=== PATIENT | female | born 1955 | race Caucasian/White ===

== ENCOUNTER 2021-08-31 17:12 | Emergency (ER) | payer BC, SELFPAY ==
[2021-08-31] VITALS (16 sets, daily range): BP systolic 154–203; BP diastolic 72–102; PULSE 61–88; RESP 13–22; TEMP 36.7; O2SAT 97–100
--- NOTE | ~2021-08-31 | XR_ITS ---
EXAMINATION: XR chest 2V DATE: 08/31/2021 17:55 INDICATION: Heart palpitations TECHNIQUE: PA and lateral views of the chest are obtained. COMPARISON: 06/15/2018 FINDINGS: The lungs are free of acute opacities. There is no pleural effusion or pneumothorax. The ca rdiomediastinal silhouette is normal. There is mild thoracic spondylosis. IMPRESSION: 1. No acute cardiopulmonary abnormality. Reviewed, dictated and finalized at location A.
--- NOTE | 2021-08-31 17:14 | ECG_ITS ---
Measurements Intervals [place] Rate: 82 P: 27 CA: 149 QRS: -21 QRSD: 98 T: 2 QT: 365 QTc: 427 Interpretive Statements SINUS RHYTHM VOLTAGE CRITERIA FOR LVH BORDERLINE T WAVE ABNORMALITY- INF/LAT LEADS BASELINE ARTIFACT- II, III, AVF BORDERLINE ECG Electronically Signed On 09-01-2021 10:08:15 CDT by Jono Coyel D.O.
[2021-08-31 17:51] LABS: Basophils Absolute Auto 0.1 K/mm3 (0.0-0.1); Basophils Percent Auto 0.8 % (0.2-1.2); Eosinophils Absolute Auto 0.1 K/mm3 (0-0.3); Eosinophils Percent Auto 0.9 % (0-4.4); Hematocrit 42.2 % (37.0-47.0); Hemoglobin 13.7 g/dL (12.0-15.0); Immature Granulocyte Absolute 0.01 K/mm3 (0.00-0.031); Immature Granulocyte Percent A 0.1 % (0-0.5); Lymphocytes Absolute Auto 1.76 K/mm3 (0.9-3.2); Lymphocytes Percent Auto 22.9 % (18.3-44.2); Mean Corpuscular HGB Conc 32.5 g/dl (32-36); Mean Corpuscular Hemoglobin 31.4 pg (26-34); Mean Corpuscular Volume 96.6 fl (80-100); Mean Platelet Volume 10.6 fl (7.4-10.4); Monocytes Absolute Auto 0.5 K/mm3 (0.1-0.6); Neutrophils Absolute Auto 5.3 K/mm3 (1.3-6.7); Neutrophils Percent Auto 68.3 % (45.5-73.1); Platelet Count Result 254 k/mm3 (150-375); Red Blood Count 4.37 M/mm3 (4.2-5.4); White Blood Count 7.7 K/mm3 (4.5-10.0)
[2021-08-31 18:01] LABS: INR 0.9; Prothrombin Time 11.8 Seconds (11.1-14.7)
[2021-08-31 18:02] LABS: Partial Thromboplastin Time 32.5 SECONDS (22.3-36.8)
[2021-08-31 18:13] LABS: Troponin I < 0.012 ng/mL (0.000-0.034)
[2021-08-31 18:19] LABS: Anion Gap 8 mmol/L (8-16); Blood Urea Nitrogen 19 mg/dL (7-17); Calcium 9.6 mg/dL (8.4-10.2); Carbon Dioxide 27 mmol/L (22-30); Chloride 104 mmol/L (98-107); Estimated CRCL calculation 64 ml/min; Estimated Glomerular Filt Rate > 60; Glucose 114 mg/dL (65-110); Sodium 139 mmol/L (137-145)
[2021-08-31 18:47] LABS: Potassium 3.7 mmol/L (3.4-5.0)
--- NOTE | 2021-08-31 19:53 | ED.ARRPALP ---
HPI - Arrhythmia/Palpitations General Chief Complaint: Arrhythmia/Palpitations Stated Complaint: heart racing Time Seen by Provider: 08/31/21 19:09 History of Present Illness HPI narrative: Patient is a 65-year-old female who presents ER with palpitations. Ongoing throughout the day. No chest pain or chest pressure. No difficulty breathing. Patient has some reports of intermittent swelling of her face for last day and that it feels warm. No cellulitis or difficulty swallowing. No dental pain. Recently noted that her blood pressure been running high so she was started on lisinopril by her PCP. Related Data Home Medications Medication Instructions Recorded Confirmed lisinopril 08/31/21 Allergies Allergy/AdvReac Type Severity Reaction Status Date / Time shellfish derived Allergy Severe Swelling Verified 08/31/21 17:18 of Lip/Tongue/Throat, RASH iodine Allergy Unknown Swelling Verified 08/31/21 20:01 of Lip/Tongue/Throat Shrimp Allergy Severe THROAT Uncoded 12/20/18 21:41 SWELLING,RASH Review of Systems Review of Systems: All systems reviewed & are unremarkable except as noted in HPI and below Constitutional: Constitutional: Denies chills, Denies fever(s) and Denies weakness ENT: Denies nasal congestion and Denies sore throat Cardiovascular: Cardiovascular: Denies chest pain, Reports rapid heart rate and Denies radiating jaw, neck or arm pain Respiratory: Respiratory: Denies cough and Denies dyspnea Gastrointestinal: Gastrointestinal: Denies abdominal pain, Denies nausea and Denies vomiting Psychiatric: Psychiatric: Denies anxiety PMFSH Past Medical History Medical History (Updated 08/31/21 @ 20:30 by Dennis Herrera MD) Colon cancer Depression Fibromyalgia Hypertension Surgical History Surgical History (Updated 08/31/21 @ 20:10 by Dennis Herrera MD) History of appendectomy Family History Family History (Updated 08/20/14 @ 11:50 by DOCTOR UNKNOWN) Mother Family history of malignant neoplasm Other Cerebrovascular accident Diabetes mellitus Hypertension Social History Social History Smoking status: Never smoker Alcohol intake: current Exam Narrative: GENERAL: Well-appearing, well-nourished, and in no acute distress. HEAD: Normocephalic, atraumatic. ENT: Mucous membranes moist. CHEST: Clear to auscultation. No respiratory distress. HEART: Regular rate and rhythm. Normal peripheral pulses. ABDOMEN: Soft, nontender, nondistended. EXTREMITIES: Normal range of motion. No edema. SKIN: Warm, dry, no rash. NEURO: Alert and oriented x3. PSYCH: Normal mood and affect. Course Course Emergency Course: Patient resting comfortably. No arrhythmia. Vital Signs Vital signs: Vital Signs Temperature 98.0 F 08/31/21 17:25 Pulse Rate 88 08/31/21 17:25 Respiratory Rate 18 08/31/21 17:25 Blood Pressure 171/90 H 08/31/21 17:25 Pulse Oximetry 100 08/31/21 17:25 Temperature 98.0 F 08/31/21 17:25 Pulse Rate 65 08/31/21 19:47 Respiratory Rate 14 08/31/21 19:47 Blood Pressure 160/72 H 08/31/21 19:47 Pulse Oximetry 99 08/31/21 19:47 MDM - Arrhythmia/Palpitations Lab Data Result diagrams: 08/31/21 17:34 08/31/21 17:34 Labs: Lab Results 08/31/21 08/31/21 08/31/21 Range/Units 17:34 17:34 17:34 WBC 7.7 (4.5-10.0) K/mm3 RBC 4.37 (4.2-5.4) M/mm3 Hgb 13.7 (12.0-15.0) g/dL Hct 42.2 (37.0-47.0) % MCV 96.6 (80-100) fl MCH 31.4 (26-34) pg MCHC 32.5 (32-36) g/dl RDW 13.0 (11.5-14.5) % Plt Count 254 (150-375) k/mm3 MPV 10.6 H (7.4-10.4) fl Immature Gran % (Auto) 0.1 (0-0.5) % Neut % (Auto) 68.3 (45.5-73.1) % Lymph % (Auto) 22.9 (18.3-44.2) % [place] % (Auto) 7.0 (2.6-8.5) % Eos % (Auto) 0.9 (0-4.4) % Baso % (Auto) 0.8 (0.2-1.2) % Lymph # (Auto) 1.76 (0.9-3.2) K/mm3 [place] # (Auto) 0.5 (0.1-0.6) K
[2021-08-31] MEDS: ASPIRIN 81 MG CHEWABLE TABLET 324 MG PO (19:54)
[2021-08-31 20:52] LABS: Troponin I < 0.012 ng/mL (0.000-0.034)
== END 2021-08-31 21:21 | disposition home or self-care (01) ==
PROVIDERS: Emergency Medicine; Emergency Provider Emergency Medicine; PCP Family Medicine Adolescent Medicine
DX: R00.2 Palpitations (principal); I10 Essential (primary) hypertension; Z85.038 Personal history of other malignant neoplasm of large intestine; R94.31 Abnormal electrocardiogram [ECG] [EKG]
CPT/HCPCS: 36415; 71046; 80048; 84484; 85025; 85610; 85730; 93005; 99284; A9270

== ENCOUNTER → 2022-01-03 14:34 | Outpatient (CLI) | payer MEDICARE, OTHER, SELFPAY ==
--- NOTE | ~2022-01-03 | XR_ITS ---
EXAMINATION: XR chest 2V 01/03/2022 14:59 INDICATION: Shortness of breath PROCEDURE: 2 view chest COMPARISON: 08/31/2021 FINDINGS: The lungs are clear. The cardiomediastinal silhouette is within normal limits. There are no pleural effusions. There is no pneumothorax suspected. IMPRESSION: 1: NO ACUTE CARDIOPULMONARY DISEASE. Reviewed, dictated and finalized at location B. GUIDE
== END ==
PROVIDERS: PCP Family Medicine Adolescent Medicine; Visit Provider Physician Assistant
DX: R06.02 Shortness of breath (principal)
CPT/HCPCS: 71046

== ENCOUNTER 2022-01-06 09:09 | Outpatient (CLI) | payer MEDICARE, OTHER, SELFPAY ==
--- NOTE | ~2022-01-06 | CT_ITS ---
EXAMINATION: CTA chest PE protocol DATE: 01/06/2022 09:37 INDICATION: Shortness of breath. TECHNIQUE: Computed tomography angiography (CTA) of the chest was performed with 100 mL Omnipaque-350 intravenous contrast timed to evaluate the pulmonary arteries. Coronal maximum intensity projection 3D-reconstructions were created by the technologist. Automated exposure control and iterative reconst ruction technique were employed. The dose-length product was 756.27 mGy-cm. COMPARISON: CT thoracic spine 08/16/2018 FINDINGS: The lungs demonstrate mild atelectasis. No pleural effusion. Cardiomegaly is noted. No jim cardial effusion. There is no pulmonary embolus. There are cysts in the liver measuring up to 10 mm. There is a small sliding hiatal hernia. There is severe cervical spondylosis and mild thoracic spondy losis. IMPRESSION: 1. No pulmonary embolus. 2. Small sliding hiatal hernia. Reviewed, dictated and finalized at location A. ET POST INSPECTOR
== END 2022-01-06 09:10 | disposition home or self-care (01) ==
LOC: ANHIMG 09:13
PROVIDERS: PCP Family Medicine Adolescent Medicine; Visit Provider Physician Assistant
DX: R06.02 Shortness of breath (principal); M79.89 Other specified soft tissue disorders; K44.9 Diaphragmatic hernia without obstruction or gangrene
CPT/HCPCS: 71275; Q9967

== ENCOUNTER 2022-01-31 13:40 | Inpatient (IN) | payer MEDICARE, OTHER, SELFPAY ==
[2022-01-31] VITALS (31 sets, daily range): BP systolic 119–173; BP diastolic 72–110; PULSE 56–82; RESP 11–24; TEMP 35.9–36.1; O2SAT 84–100; BMI 41.4
--- NOTE | ~2022-01-31 | XR_ITS ---
EXAMINATION: XR chest 2V 01/31/2022 14:22 INDICATION: Chest pain PROCEDURE: 2 view chest COMPARISON: 01/03/2022 FINDINGS: The lungs are clear. The cardiomediastinal silhouette is within normal limits. There are no pleural effusions. There is no pneumothorax suspected. IMPRESSION: 1: NO ACUTE CARDIOPULMONARY DISEASE. Reviewed, dictated and finalized at location A.
--- NOTE | ~2022-01-31 | CT_ITS ---
EXAMINATION: CT diagnostic chest wo con DATE: 01/31/2022 16:20 INDICATION: Chest pain TECHNIQUE: Computed tomography (CT) of the chest was performed without intravenous contrast. The dose -length product (DLP) was 286.16 mGy-cm. Automated exposure control and iterative reconstruction tech nique were employed. COMPARISON: 01/06/2022 FINDINGS: There is mild dependent atelectasis. The lungs are free of focal airspace opacities. No ple ural effusion or pneumothorax is identified. No pathologically enlarged thoracic lymph nodes are iden tified. The heart size is normal. There is mild thoracic spondylosis. A small sliding hiatal hernia i s noted. IMPRESSION: 1. No CT correlate for the patient's symptoms. Reviewed, dictated and finalized at location B.
--- NOTE | 2022-01-31 13:42 | ECG_ITS ---
Measurements Intervals [place] Rate: 71 P: 88 [place]: 143 QRS: -21 QRSD: 100 T: -24 QT: 363 QTc: 394 Interpretive Statements SINUS RHYTHM BORDERLINE LEFT AXIS DEVIATION [QRS AXIS < -20] MODERATE VOLTAGE CRITERIA FOR LVH, CONSIDER NORMAL VARIANT [MEETS CRITERIA IN ONE OF: R(aVL), S(V1), R(V5), R(V5/V6)+S(V1)] NONSPECIFIC ST & T-WAVE ABNORMALITY COMPARED TO ECG 08/31/2021 17:23:29 NO CHANGE Electronically Signed On 01-31-2022 15:51:09 CDT by Derrell Boateng M.D.
[2022-01-31 14:02] LABS: Basophils Absolute Auto 0.1 K/mm3 (0.0-0.1); Basophils Percent Auto 0.7 % (0.2-1.2); Eosinophils Absolute Auto 0.1 K/mm3 (0-0.3); Eosinophils Percent Auto 0.7 % (0-4.4); Hemoglobin 13.1 g/dL (12.0-15.0); Immature Granulocyte Absolute 0.02 K/mm3 (0.00-0.031); Immature Granulocyte Percent A 0.2 % (0-0.5); Lymphocytes Absolute Auto 1.02 K/mm3 (0.9-3.2); Lymphocytes Percent Auto 12.7 % (18.3-44.2); Mean Corpuscular Hemoglobin 31.1 pg (26-34); Mean Corpuscular Volume 97.4 fl (80-100); Mean Platelet Volume 10.4 fl (7.4-10.4); Monocytes Absolute Auto 0.6 K/mm3 (0.1-0.6); Monocytes Percent Auto 7.1 % (2.6-8.5); Neutrophils Absolute Auto 6.3 K/mm3 (1.3-6.7); Neutrophils Percent Auto 78.6 % (45.5-73.1); Platelet Count Result 236 k/mm3 (150-375); Red Blood Count 4.21 M/mm3 (4.2-5.4); Red Cell Distribution Width 12.8 % (11.5-14.5)
[2022-01-31 14:16] LABS: INR 0.9; Prothrombin Time 12.2 Seconds (11.1-14.7)
[2022-01-31 14:17] LABS: Partial Thromboplastin Time 32.6 SECONDS (22.3-36.8)
[2022-01-31 14:36] LABS: Alanine Aminotransferase 25 U/L (4-35); Alkaline Phosphatase 88 U/L (38-126); Anion Gap 6 mmol/L (8-16); Aspartate Amino Transferase 43 U/L (14-36); Bilirubin,Total 0.4 mg/dL (0.2-1.3); Blood Urea Nitrogen 26 mg/dL (7-17); Calcium 8.6 mg/dL (8.4-10.2); Carbon Dioxide 22 mmol/L (22-30); Chloride 109 mmol/L (98-107); Estimated CRCL calculation 62 ml/min; Estimated Glomerular Filt Rate > 60; Glucose 127 mg/dL (65-110); Lipase 111 U/L (23-300); Potassium 3.9 mmol/L (3.4-5.0); Sodium 137 mmol/L (137-145)
[2022-01-31] MEDS: ASPIRIN 81 MG CHEWABLE TABLET 324 MG PO (15:11)
--- NOTE | 2022-01-31 15:58 | ECG_ITS ---
Measurements Intervals [place] Rate: 67 P: 43 CA: 143 QRS: -19 QRSD: 113 T: -24 QT: 423 QTc: 447 Interpretive Statements SINUS RHYTHM LEFT VENTRICULAR HYPERTROPHY AND ST-T CHANGE [VOLTAGE CRITERIA PLUS ST/T ABNORMALITY] INFEROLATERAL T-WAVE ABNORMALITY, CONSIDER ISCHEMIA POOR R-WAVE PROGRESSION LEFTWARD AXIS ABNORMAL ECG Electronically Signed On 02-01-2022 11:09:15 CDT by Johnson Mullen M.D.
--- NOTE | 2022-01-31 16:06 | ED.CHESTPAIN ---
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 With intermittent sharp stabbing pain between shoulder blades. Pain was 10 out of 10, on arrival to the emergency room 7 out of 10. Patient reports having similar symptoms over the last 6 months and is scheduled to see a clay hoister coming Monday. Usually the pain gets better in 1 to 2 hours but this 1 has been hanging in there for hours. complaint: chest pain Related Data Allergies Allergy/AdvReac Type Severity Reaction Status Date / Time shellfish derived Allergy Severe Swelling Verified 12/02/21 08:55 of Lip/Tongue/Throat, RASH iodine Allergy Unknown Swelling Verified 12/02/21 08:55 of Lip/Tongue/Throat Shrimp Allergy Severe THROAT Uncoded 12/02/21 08:55 SWELLING,RASH Review of Systems Review of Systems: CONSTITUTIONAL: Denies fever, chills, or sweats. EYES: Denies visual changes, redness, or discharge. ENT: Denies rhinorrhea, congestion, sore throat, or otalgia. CARDIOVASCULAR: Denies chest pain, palpitations, or edema. RESPIRATORY: Denies cough or dyspnea. GASTROINTESTINAL: Denies abdominal pain, nausea, vomiting, or diarrhea. GENITOURINARY: Denies dysuria or hematuria. SKIN: Denies rash or itching. MUSCULOSKELETAL: Denies back pain, joint pain, or myalgia. NEUROLOGIC: Denies headache, numbness, or weakness. PSYCHIATRIC: Denies anxiety or depression. [facility] Past Medical History Medical History Depression Fibromyalgia History of rectal or anal cancer 08/26 Squamous cell Hypertension Surgical History Surgical History History of appendectomy History of tonsillectomy History of tubal ligation Family History Family History Mother Family history of malignant neoplasm leukemia Father Family history of malignant neoplasm lung cancer Other Cerebrovascular accident Diabetes mellitus Hypertension Social History Social History Smoking status: Never smoker Second hand tobacco smoke exposure: No Alcohol intake: current Alcohol use details: socially Substance use: never Substance use type: does not use 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 Gender identity (if verbalized by the patient): Female Sexual Orientation (if Verbalized by the Patient): Straight or Heterosexual Spiritual care concerns: No Agree to blood products: Yes Exam Narrative: General appearance: Well-developed, well-nourished Skin: Trace edema lower extremity bilaterally Head: Normocephalic, nontraumatic Eyes: Clear conjunctiva ENT: Oropharynx normal, ears normal, nose normal Neck: Supple, nontender Chest and respiratory: Airway patent, no respiratory distress, no accessory muscle use diffuse tenderness across the chest with palpation, no bruises, no rash Heart: Regular rate/rhythm Abdomen: Soft, nontender, no organomegaly, quiet bowel sounds Vascular: Normal peripheral pulses, normal capillary refill. Musculoskeletal: Normal range of motion, nontender back Neurologic: Alert and oriented ?3, DIRECTOR OF COMPENSATION is normal as tested, no gross motor deficit
--- NOTE | 2022-01-31 16:29 | PCRCNOTE ---
can cancel per Dr. Chester
--- NOTE | 2022-01-31 16:38 | PC.NURSE ---
Cardiology at bedside.
[2022-01-31] MEDS: NITROGLYCERIN OINTMENT 1 INCH DOSE TRANSDERM (16:40)
[2022-01-31] MEDS: METOPROLOL TARTRATE INJ 5 MG/5 ML VIAL IV PUSH ×3 (16:43→16:55)
--- NOTE | 2022-01-31 16:54 | PM.IMHP ---
H&P: HPI History of Present Illness Date/Time: 01/31/22 16:54 Chief Complaint: this is a 66-year-old woman that I am seeing in the emergency room with chest pain at the request of the ED staff because of suspected acute coronary syndrome. Patient says she is not known to have any cardiac history prior to this. She says that she has had episodes of intermittent chest pain for at least 2 or 3 years off and on that occur in an unpredictable fashion. She had these episodes have caused her to come to the emergency room on a couple of occasions with negative evaluations and she has been then discharged home. She is a lady with hypertension and significant obesity who began to have chest pain this morning while she was at work. 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 in the morning started to have a tight pain across the center of the spectrum sternal region radiating into the interscapular region of her back. The patient states that this symptoms were associated with some diaphoresis. She came to the emergency department for evaluation. Her emergency room ECG initially was benign the 2nd tracing did demonstrate some lateral nonspecific but new T-wave inversions. Her troponin levels have and found to be elevated at 2.1. She has been given aspirin beta-blockers and nitrates and she says she feels much better still having mild symptoms appears to be rather comfortable. Initially my plan was to bring her at this time to the cardiac labeling associate for urgent angiography however the chart indicates she has a significant dye allergy with swelling of the lips tongue and throat. The patient corroborates this when eating shellfish and shrimp. As a result of this I had canceled plans to bring her to the labeling associate until she has been appropriately premedicated. I directed the ED staff to start her on a heparin infusion as well as intravenous nitroglycerin. She has already received aspirin and beta-blockers in the emergency room as well. Review of Systems Constitutional: Constitutional: Reports no additional constitutional complaints Eyes: Eyes: Reports no additional eye complaints ENT: Reports system reviewed and no additional complaints, except as documented Cardiovascular: Cardiovascular: Reports as per HPI Respiratory: Respiratory: Reports no additional respiratory complaints Gastrointestinal: Gastrointestinal: Reports no additional gastrointestinal complaints Musculoskeletal: Musculoskeletal: Reports no additional musculoskeletal complaints Integumentary/Breasts: Skin/Breast: Reports system reviewed and no additional complaints, except as docu Neurologic: Reports system reviewed and no additional complaints, except as documented PMFSH Past Medical History Medical History Depression Fibromyalgia History of rectal or anal cancer 08/26 Squamous cell Hypertension Surgical History Surgical History History of appendectomy History of tonsillectomy History of tubal ligation Family History Family History Mother Family history of malignant neoplasm leukemia Father Family history of malignant neoplasm lung cancer Other Cerebrovascular accident Diabetes mellitus Hypertension Social History Social History Smoking status: Never smoker Second hand tobacco smoke exposure: No Alcohol intake: current Alcohol use details: socially Substance use: never Substance use type: does not use 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
[2022-01-31] MEDS: diphenhydrAMINE HCl INJ 50 MG/ML VIAL IV PUSH ×2 (17:10→17:18)
[2022-01-31 17:20] LABS: NT Pro B Type Natriuretic Pept 438 pg/mL (5-100)
[2022-01-31] MEDS: methylPREDNISolone SOD SUCC 125 MG VIAL IV PUSH (17:32)
[2022-01-31] MEDS: HEPARIN SODIUM 5,000 UNITS/ML VIAL 7000 UNITS IV PUSH (17:41)
[2022-01-31] MEDS: HEPARIN SOD/D5W 100 UNITS/ML 25,000 UNITS/250 ML BAG 10 UNITS IV CONT ×2 (17:43→18:30)
[2022-01-31 17:46] LABS: Add Urine Microscopic? YES; Appearance Urine Clear (Clear); Bilirubin Urine Negative (Negative); Blood Urine Negative (Negative); Color Urine Yellow (Yellow); Glucose Urine UA Negative (Negative); Ketones Urine Trace mg/dL (Negative); Leukocyte Esterase Ur Negative LEU/UL (Negative); Mucus Urine Rare /lpf; Nitrate Urine Negative (Negative); Protein Urine Negative (Negative); Specific Grav Ur 1.021 (1.001-1.035); Squamous Epithelial Cell Urine Rare /hpf (Few); Urobilinogen Urine Negative mg/dL (<2.0); WBC Urine 0-3 /hpf
[2022-01-31] MEDS: NITROGLYCERIN/D5W 200 MCG/ML 50 MG/250 ML BTL IV CONT ×2 (17:48→19:00)
[2022-01-31] MEDS: ONDANSETRON INJ 4 MG/2 ML VIAL IV PUSH (17:51)
--- NOTE | 2022-01-31 18:15 | PC.NURSE ---
Pt report called to arianna Garcia at this time, pt clear to come to icu 7.
--- NOTE | 2022-01-31 18:22 | PC.NURSE ---
Report received by BIANCA Goodwin with the ED department. All questions answered and plan of care reviewed. Patient to go to ICU room 7.
--- NOTE | 2022-01-31 18:34 | ADMGEN ---
This patient, Padmini Mederos, was admitted to Intensive Care Unit-7 at 1825 from the ED. Patient/family oriented to hospital policies and general routines including ID bracelet, bed and alarms, visiting hours, pain management, procedures, bathroom and other care routines, personal items, smoking policy, room service/diet, and visiting hours. Information on how to activate the Rapid Response Team has been discussed. Patient/Family are encouraged to report perceived risks to care and to ask questions if they do not understand what they are told or what they should do.
--- NOTE | 2022-01-31 19:24 | PM.IMHP ---
H&P: HPI History of Present Illness Date/Time: 01/31/22 19:24 Chief Complaint: Chest pain Narrative: This is a 66-year-old female with past medical history significant for hypertension, gastroesophageal reflux disease. Patient presents to the emergency room due to chest pain localized to the epigastric area with radiation bilaterally to the arms and to the back in between her scapulas feels like an elephant sitting on her chest, it happened while the patient was exerting herself. According to the patient he she has had chest pain on and off for several months now. Patient had been evaluated in the outpatient setting and had upcoming appointment with Cardiology next Monday. Patient arrived to emergency room via EMS preliminary workup was significant for troponin of 2.1 initial disposition was to take patient to orthodontic lab technician for emergent acute coronary syndrome however patient has anaphylaxis when exposed to iodine contrast in view of these preparation for catheterization was aborted and patient will be prep overnight in anticipation for cardiac catheterization. Patient has been placed on nitroglycerin drip. Review of Systems Review of Systems: Chest pain, diaphoresis, lightheadedness. Constitutional: Constitutional: Denies chills, Denies fatigue, Denies fever(s), Denies malaise and Denies weakness Eyes: Eyes: Denies diplopia ENT: Denies dysphagia, Denies vertigo, Denies dizziness, Denies nasal congestion, Denies nasal discharge and Denies odynophagia Cardiovascular: Cardiovascular: Reports chest pain with activity, Reports diaphoresis, Denies syncope, Denies pedal edema, Reports leg edema, Reports lightheadedness, Reports radiating jaw, neck or arm pain, Denies palpitations, Denies dyspnea on exertion and Denies orthopnea Respiratory: Respiratory: Denies cough, Denies excessive phlegm production and Denies dyspnea Gastrointestinal: Gastrointestinal: Denies dyspepsia, Denies heartburn, Denies diarrhea, Denies nausea and Denies vomiting Genitourinary: Genitourinary: Denies dysuria Musculoskeletal: Musculoskeletal: Denies back pain, Denies myalgias, Denies arthralgias and Denies joint swelling Integumentary/Breasts: Skin/Breast: Denies rash Neurologic: Denies focal weakness and Denies Sensory deficit (Neuro) Psychiatric: Psychiatric: Reports no additional psychiatric complaints and Reports as per HPI Endocrine: Endocrine: Denies cold intolerance, Denies fatigue, Denies flushing, Denies heat intolerance, Denies polyphagia, Denies polydipsia, Denies polyuria and Denies palpitations Hematologic/Lymphatic: Hematologic/Lymphatic: Reports no additional hematologic/lymphatic complaints and Reports as per HPI Allergic/Immunologic: Allergic/Immunologic: Reports no additional allergic/immunologic complaints and Reports as per HPI PMFSH Past Medical History Medical History Depression Fibromyalgia History of rectal or anal cancer 08/26 Squamous cell Hypertension Surgical History Surgical History History of appendectomy History of tonsillectomy History of tubal ligation Family History Family History Mother Family history of malignant neoplasm leukemia Father Family history of malignant neoplasm lung cancer Other Cerebrovascular accident Diabetes mellitus Hypertension Social History Social History Smoking status: Never smoker Second hand tobacco smoke exposure: No Alcohol intake: never Alcohol use details: socially Substance use: never Substance use type: does not use 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
--- NOTE | 2022-01-31 19:54 | PC.NURSE ---
Report received by BIANCA Kendrick at 1815 with the ED department. All questions answered and plan of care reviewed. Patient to go to ICU room 7.
--- NOTE | 2022-01-31 21:21 | ECG_ITS ---
Measurements Intervals [place] Rate: 58 P: [place]: 0 QRS: -16 QRSD: 98 T: -45 QT: 432 QTc: 427 Interpretive Statements SINUS RHYTHM/SINUS ARRHYTHMIA MINIMAL VOLTAGE CRITERIA FOR LVH, CONSIDER NORMAL VARIANT [MEETS CRITERIA IN ONE OF: R(aVL), S(V1), R(V5), R(V5/V6)+S(V1)] INFERIOR T-WAVE ABNORMALITIES, CONSIDER ISCHEMIA ABNORMAL ECG ARTIFACT LIMITS INTERPRETATION Electronically Signed On 02-01-2022 11:16:02 CDT by Johnson Mullen M.D.
[2022-01-31] MEDS: predniSONE 40 MG, predniSONE 10 MG 50 MG PO (22:38)
[2022-01-31 23:46] LABS: INR 1.1; Prothrombin Time 13.3 Seconds (11.1-14.7)
[2022-01-31 23:53] LABS: Partial Thromboplastin Time 172.6 SECONDS (22.3-36.8)
[2022-02-01] VITALS (16 sets, daily range): BP systolic 91–140; BP diastolic 54–84; PULSE 45–88; RESP 9–16; TEMP 36.1–37; O2SAT 91–98
--- NOTE | 2022-02-01 00:33 | PC.NURSE ---
Dr. Murphy called and asked for me to call the import and export clerk and make them aware of the increasing troponin level. I placed a call to their exchange at [phone] and am still awaiting the return call from Dr. Silva. Patient vitals are HR 50, RR 12, BP 98/67, sats 98%, chest pain at a level 2 and she is sleeping at this time.
[2022-02-01] MEDS: MORPHINE SULFATE (*CRX) 4 MG/ML INJ IV PUSH (01:31)
[2022-02-01] MEDS: predniSONE 40 MG, predniSONE 10 MG 50 MG PO ×3 (03:07→11:58)
--- NOTE | 2022-02-01 03:25 | PC.NURSE ---
Second call to cardiology exchange made at this time to inform them of troponin levels increasing.
--- NOTE | 2022-02-01 07:38 | WPDCNINT ---
Assessment and Plan Assessment and plan (1) Non-STEMI (non-ST elevated myocardial infarction): Code(s): I21.4 - Non-ST elevation (NSTEMI) myocardial infarction Status: Acute Assessment and Plan: Patient presented the ER on 01/31/2022 with complains of chest pain, EKG showed some nonspecific lateral T-wave inversions. -Troponins were elevated 2.1--> 5.04-->5.35 -since patient is allergic to shellfish and iodine, a implement mechanic wanted to premedicate her prior to taking her to the cardiac vat house laborer -patient was given heparin bolus and started on heparin infusion the ER -continue aspirin, beta-sangeeta, statin, morphine for chest pain -patient also on nitroglycerin infusion -likely cardiac catheterization today (2) Essential (primary) hypertension: Code(s): I10 - Essential (primary) hypertension Status: Acute Assessment and Plan: Will hold metoprolol since patient is bradycardic (3) GERD (gastroesophageal reflux disease): Code(s): K21.9 - Gastro-esophageal reflux disease without esophagitis Status: Acute Assessment and Plan: Will order famotidine (4) Contrast media allergy: Code(s): Z91.041 - Radiographic dye allergy status Status: Acute Assessment and Plan: Patient is being premedicated with prednisone, Benadryl, famotidine Additional Plan Discuss with patient, updated her condition and plan of care. I answered all her questions. Code status: Full code Critical care time spent: 44 minutes This dictation may have been done utilizing a voice recognition system. Attempts have been made to correct errors. However, there may be uncorrected grammatical, spelling, and recognition errors present. Due to a high probability of clinically significant, life threatening deterioration, the patient required my highest level of preparedness to intervene emergently and I personally spent this critical care time directly and personally managing the patient. This critical care time included obtaining a history; examining the patient; pulse oximetry; ordering and review of studies; arranging urgent treatment with development of a management plan; evaluation of patient's response to treatment; frequent reassessment; and discussions with other providers. It was exclusive of separately billable procedures and treating other patients and teaching time. Please see Assessment and Plan section and the rest of the note for further information on patient assessment and treatment [employer] Appellate Clerk Consult Note Consult date: 02/01/22 Time Seen: 07:03 Reason for consult: Chest pain, NSTEMI HPI: Padmini Mederos is a 66 year old female past medical history of essential hypertension, GERD, depression, fibromyalgia, history of rectal/anal cancer in 2013 presented the ED with complains of sudden onset of severe chest pain. Pain was sharp and stabbing in nature, radiating between the shoulder blades, 10/10 in intensity and upon arrival to the ER it was 7/10. Patient also had complained of similar symptoms over the last 6 months (and according to the implement mechanic's note she has been having intermittent chest pain for at least 2 or 3 years) and has had been evaluated in the ER on couple of occasions with negative evaluations and had been discharged home. 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 EKG initially was benign and the 2nd tracing did demonstrate some lateral nonspecific with new T-wave inversions. Troponin levels were found to be elevated 2.1--> 5.04--> 5.35. Patient was started given aspirin, started on heparin infusion, beta-sangeeta and nitroglycerin infusion. Patient has severe allergy to shellfish and iodine. Cardiology felt patient needs to be appropriately premedicated prior to taking her to the cardiac vat house laborer. Patient was transferred to the ICU for further management. Patient seen and examined the ICU, is nicki
[2022-02-01 07:46] LABS: Basophils Percent Auto 0.2 % (0.2-1.2); Hematocrit 39.6 % (37.0-47.0); Hemoglobin 12.8 g/dL (12.0-15.0); Immature Granulocyte Absolute 0.03 K/mm3 (0.00-0.031); Immature Granulocyte Percent A 0.5 % (0-0.5); Lymphocytes Absolute Auto 0.82 K/mm3 (0.9-3.2); Mean Corpuscular HGB Conc 32.3 g/dl (32-36); Mean Corpuscular Hemoglobin 30.8 pg (26-34); Mean Corpuscular Volume 95.4 fl (80-100); Mean Platelet Volume 11.3 fl (7.4-10.4); Monocytes Absolute Auto 0.1 K/mm3 (0.1-0.6); Monocytes Percent Auto 0.8 % (2.6-8.5); Neutrophils Absolute Auto 5.4 K/mm3 (1.3-6.7); Neutrophils Percent Auto 85.5 % (45.5-73.1); Platelet Count Result 238 k/mm3 (150-375); Red Blood Count 4.15 M/mm3 (4.2-5.4); Red Cell Distribution Width 12.7 % (11.5-14.5); White Blood Count 6.3 K/mm3 (4.5-10.0)
[2022-02-01 07:46] LABS: Cholesterol 214 mg/dL (0-200); HDL Direct 64 mg/dL; Triglycerides 40 mg/dL (<150)
[2022-02-01 07:55] LABS: LDL Cholesterol Direct 123 mg/dL
[2022-02-01 07:56] LABS: Partial Thromboplastin Time 74.7 SECONDS (22.3-36.8)
[2022-02-01] MEDS: ASPIRIN 81 MG CHEWABLE TABLET PO (08:02)
[2022-02-01] MEDS: ACETAMINOPHEN 325 MG TABLET 650 MG PO (09:44)
[2022-02-01] MEDS: methylPREDNISolone SOD SUCC 125 MG VIAL IV PUSH (11:58)
[2022-02-01] MEDS: FAMOTIDINE 20 MG/2 ML VIAL IV PUSH (11:58)
[2022-02-01] MEDS: diphenhydrAMINE HCl INJ 50 MG/ML VIAL IV PUSH (12:04)
[2022-02-01 12:42] LABS: Partial Thromboplastin Time 69.4 SECONDS (22.3-36.8)
--- NOTE | 2022-02-01 12:46 | WPDMODSED ---
Moderate Sedation Note-Pt Data Patient Data Diagnosis: Acute coronary syndrome/ non ST elevation [place] Present Complaint: chest pain Procedure to be performed/Plan: left heart catheterization Allergies Allergy/AdvReac Type Severity Reaction Status Date / Time shellfish derived Allergy Severe Swelling Verified 12/02/21 08:55 of Lip/Tongue/Throat, RASH iodine Allergy Unknown Swelling Verified 12/02/21 08:55 of Lip/Tongue/Throat Shrimp Allergy Severe THROAT Uncoded 12/02/21 08:55 SWELLING,RASH Home Medications Medication Instructions Recorded Confirmed Type lisinopril 40 mg tablet 40 mg PO DAILY #90 tablet 12/02/21 01/31/22 Rx furosemide 20 mg tablet 20 mg PO QAM #30 tablet 01/21/22 01/31/22 Rx pantoprazole 40 mg tablet,delayed 40 mg PO BID #60 tablet 01/25/22 01/31/22 Rx release Current Medications: Active Medications Acetaminophen (Acetaminophen 325 Mg Tablet) 650 mg PO Q4H PRN PRN Reason: Mild Pain (1-3) or Fever Last Admin: 02/01/22 09:44 Dose: 650 mg Documented by: Aspirin (Aspirin 81 Mg Chewable Tablet) 81 mg PO DAILY@0800 LUIS Last Admin: 02/01/22 08:02 Dose: 81 mg Documented by: Atorvastatin Calcium (Atorvastatin 40 Mg Tablet) 40 mg PO HS LUIS Diphenhydramine HCl (Diphenhydramine Hcl Inj 50 Mg/Ml Vial) 50 mg IV PUSH ONCE PRN PRN Reason: before contrast media injectio Last Admin: 02/01/22 12:04 Dose: 50 mg Documented by: Famotidine (Famotidine 20 Mg/2 Ml Vial) 20 mg IV PUSH ONCE ONE Stop: 02/01/22 13:01 Last Admin: 02/01/22 11:58 Dose: 20 mg Documented by: Heparin Sodium (Porcine) (Heparin Sodium 5,000 Units/Ml Vial) 4,000 units IV PUSH PRN PRN PRN Reason: aPTT less than 55 seconds Heparin Sodium (Porcine) (Heparin Sodium 5,000 Units/Ml Vial) 3,000 units IV PUSH PRN PRN PRN Reason: aPTT 55 - 70 seconds Acetaminophen (Ofirmev 1,000 Mg Ivpb) 1,000 mg in 100 mls @ 400 mls/hr IVPB Q6H PRN PRN Reason: Mild Pain (1-3) or Fever Stop: 02/01/22 17:18 Nitroglycerin/Dextrose (Nitroglycerin In 5% Dextrose 50 Mg) 50 mg in 250 mls @ 4.5 mls/hr IV CONT .Q24H LUIS; Protocol Last Titration: 02/01/22 09:45 Dose: 15 mcg/min, 4.5 mls/hr Documented by: Heparin Sodium/Dextrose (Heparin Sodium/D5w 100 Units/Ml) 25,000 units in 250 mls @ 8 mls/hr IV CONT .Q24H LUIS; Protocol Last Titration: 02/01/22 08:00 Dose: 800 units/hr, 8 mls/hr Documented by: Methylprednisolone Sodium Succinate (Methylprednisolone Sod Succ 125 Mg Vial) 125 mg IV PUSH ONCE ONE Stop: 02/01/22 13:01 Last Admin: 02/01/22 11:58 Dose: 125 mg Documented by: Morphine Sulfate (Morphine Sulfate (*Crx) 4 Mg/Ml Inj) 4 mg IV PUSH Q2H PRN PRN Reason: Pain Rated 7-10 Last Admin: 02/01/22 01:31 Dose: 4 mg Documented by: Ondansetron HCl (Ondansetron Inj 4 Mg/2 Ml Vial) 4 mg IV PUSH Q4H PRN PRN Reason: Nausea Prednisone 40 mg/ Prednisone (10 mg) 50 mg PO Q6H LUIS Last Admin: 02/01/22 08:02 Dose: 50 mg Documented by: Prednisone 40 mg/ Prednisone (10 mg) 50 mg PO ONCE PRN 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 [facility] Past Medical History Medical History Depression Fibromyalgia History of rectal or anal cancer 08/26 Squamous cell Hypertension Surgical History Surgical History History of appendectomy History of tonsillectomy History of tubal ligation Family History Family History Mother Family history of malignant neoplasm leukemia Father Family history of malignant neoplasm lung cancer Other Cerebrovascular accident Diabetes mellitus Hypertension Social History Social History Smoking status: Never smoker Second hand tobacco
--- NOTE | 2022-02-01 13:00 | PM.IMPN ---
Progress Note: A&P Assessment and Plan (1) Non-STEMI (non-ST elevated myocardial infarction): Code(s): I21.4 - Non-ST elevation (NSTEMI) myocardial infarction Status: Acute Assessment and Plan: Patient presented the ER on 01/31/2022 with complains of chest pain EKG showed inferolateral T-wave inversions but noted in August; EKG showing more pronounced inferior T wave inversions Troponin were elevated 2.1 -> 5.04 -> 5.35 Patient given ASA, NTP and Metoprolol IV in ED Patient admitted to ICU on NTG drip and Heparin drip Patient is allergic to shellfish and iodine so being premedicated for heart cath today Resume ASA. Start Lipitor. Lipid levels noted. Cardiology consulted and appreciate their input (2) Essential (primary) hypertension: Code(s): I10 - Essential (primary) hypertension Status: Acute Assessment and Plan: Patient with hx of HTN Takes Lasix 20mg and Lisinopril 40mg daily at home Metoprolol held since patient is bradycardic Check Apnea link due to the nocturnal bradycardia (3) GERD (gastroesophageal reflux disease): Code(s): K21.9 - Gastro-esophageal reflux disease without esophagitis Status: Acute Assessment and Plan: Stable. Resume pantoprazole (4) Contrast media allergy: Code(s): Z91.041 - Radiographic dye allergy status Status: Acute Assessment and Plan: As above. Patient is being premedicated with prednisone, Benadryl, famotidine. (5) Morbid obesity with BMI of 40.0-44.9, adult: Code(s): E66.01 - Morbid (severe) obesity due to excess calories; Z68.41 - Body mass index [BMI] 40.0-44.9, adult Status: Acute Assessment and Plan: BMI 41.5. Obesity is contributing to her other medical problems. Will discuss benefits of eating healthy lifestyle. Subjective Date/time seen: 02/01/22 13:00 Interval history: 66yo female with HTN here for chest pain and found to have NSTEMI Chest pain 4/10 ken she does minimal activity but then improves to 2/10. Feels like a vice across the center of her chest and does radiate into the arms bilaterally. Has been having BURGOS and pedal edema recently. has had chest pain in the past but no stress test. She had an appointment with a Hand Packer next week. Diaphoresis and SOB associated with the CP. Feels better today. Exam Narrative: AF 98.2 138/63 80 16 98% 2L Gen - NARD Chest - CTA bilaterally, nml RR CV - RRR S1/S2. Tele showing bardycardia overnight. Abd - Soft, mild tenderness in the epigastric area. Ext - No pedal edema. Negative Homans Psych - Nml mood and affect Skin - Warm and dry Objective Data Vital Signs Vital Signs: Vital Signs - 24 hr 01/31/22 13:45 01/31/22 14:56 01/31/22 14:57 Temperature 96.9 F L Pulse Rate 80 76 78 Respiratory Rate 18 15 22 H Blood Pressure 152/110 H 158/98 H Pulse Oximetry 100 01/31/22 15:00 01/31/22 15:01 01/31/22 15:13 Temperature Pulse Rate 71 76 82 Respiratory Rate 17 14 17 Blood Pressure 155/92 H 155/92 H Pulse Oximetry 100 99 91 01/31/22 15:15 01/31/22 15:16 01/31/22 15:30 Temperature Pulse Rate 81 67 Respiratory Rate 14 16 Blood Pressure Pulse Oximetry 91 91 86 L 01/31/22 15:32 01/31/22 15:36 01/31/22 15:46 Temperature Pulse Rate 69 71 70 Respiratory Rate 24 H 19 18 Blood Pressure 124/100 H 173/104 H Pulse Oximetry 87 L 84 L 96 01/31/22 16:00 01/31/22 16:02 01/31/22 16:24 Temperature Pulse Rate 76 70 71 Respiratory Rate 18 17 11 L Blood Pressure 160/104 H Pulse Oximetry 100 100 100 01/31/22 16:25 01/31/22 16:26 01/31/22 16:29 Temperature Pulse Rate 69 75 Respiratory Rate 17 21 H Blood Pressure 162/109 H Pulse Oximetry 100 100 96 01/31/22 16:43 01/31/22 16:48 01/31/22 16:55 Temperature Pulse Rate 69 62 78 Respiratory Rate 21 H Blood Pressure 149/109 H Pulse Oximetry 01/31/22 17:01 01/31/22 17:06
--- NOTE | 2022-02-01 13:15 | P.PCNCC_ITS ---
Cardiac Cath Procedure Note Date of procedure:: 02/01/22 Performing physician:: Derrell Boateng MD Indication:: acute coronary syndrome / non ST elevation [place] Brief clinical history:: this is a 66-year-old woman who presented yesterday with episode of chest pain that began in the morning and persisted most the entire day. Her ECG demonstrated initially nose changes in then some lateral T- wave inversion was noted. Troponin level has risen up to over 5. In this setting presumptive diagnosis is non ST elevation [place] and angiogram has been recommended. Procedure Procedure performed:: Left ventriculogram coronary angiogram Angio-Seal to right femoral artery Sedation/Medication given:: fentanyl 50 mg Versed 2 mg case start time 12:54 p.m. case end time 1:13 p.m. sedation provided by Sukhdev Vasquez RN, trained observer Access site:: right femoral artery Estimated blood loss:: 25 cc Procedure note:: patient was brought to the cardiac catheterization lab in the postabsorptive state where the right femoral triangle was prepared and draped in the normal fashion. Anesthesia has been provided with 1% lidocaine infiltrated locally. Using the modified Seldinger technique a 5 [place] Islander sheath was placed into the right common femoral artery after this left heart catheterization was carried out a 5 [place] Islander angled pigtail catheter was used to measure left-sided hemodynamics and to inject LV g SIMONS projection following this standard FL4 catheter was used to engage and inject the left coronary artery and a JR4 catheter was used to inject the right coronary artery. The case was then terminated the cineangiograms were reviewed. Angiogram was done of the femoral artery through the sheath after which a Angio-Seal device was deployed with a good hemostatic result. Patient was taken to the holding area for post cath recovery there was no sign of any procedural complication and no groin hematoma was noted at the end of the case. Findings:: Hemodynamics: Central aortic pressure is 140/78 left ventricle 140 over 8 end-diastolic pressure 18 there is no significant gradient on pullback across the aortic valve. Left ventricle: The LV is size. The apical 3rd of the LV is hypodynamic with small rim of akinesia. The mid and basal segments contract well. The glob al ejection fraction is visually estimated to be 40-45%. The left main coronary artery is widely patent the left anterior descending is a medium caliber artery giving rise to the diagonal branches and septal branches. The LAD in the branches are smooth and angiographically free of disease. The circumflex is a small vessel giving rise to just 1 Significant marginal branch of any significance there are tiny marginal branches proximal to this. The circumflex system is free of disease. the right coronary artery is large in caliber and dominant to the posterior circulation the right coronary artery has minimal luminal irregularities proximally but otherwise is widely patent with no significant coronary disease. Conclusion:: 1. Right coronary dominant circulation mild luminal irregularities are seen the proximal RCA no significant coronary disease angiographically. 2. Apical hypokinesia as described above pattern is typical of takotsubo stress cardiomyopathy Derrell Boateng MD [facility]
[2022-02-01] MEDS: SODIUM CHLORIDE 0.9% IV 1,000 ML 125 ML IV CONT (15:32)
[2022-02-01] MEDS: PANTOPRAZOLE 40 MG TABLET PO (17:12)
[2022-02-01] MEDS: ATORVASTATIN 40 MG TABLET PO (20:13)
[2022-02-02] VITALS (19 sets, daily range): BP systolic 117–164; BP diastolic 59–117; PULSE 56–88; RESP 12–19; TEMP 36.3–36.6; O2SAT 96–99
[2022-02-02 06:05] LABS: Basophils Percent Auto 0.2 % (0.2-1.2); Hematocrit 40.4 % (37.0-47.0); Hemoglobin 12.9 g/dL (12.0-15.0); Immature Granulocyte Absolute 0.09 K/mm3 (0.00-0.031); Immature Granulocyte Percent A 0.7 % (0-0.5); Lymphocytes Absolute Auto 0.85 K/mm3 (0.9-3.2); Lymphocytes Percent Auto 6.7 % (18.3-44.2); Mean Corpuscular HGB Conc 31.9 g/dl (32-36); Mean Corpuscular Hemoglobin 30.6 pg (26-34); Mean Platelet Volume 11.1 fl (7.4-10.4); Monocytes Absolute Auto 0.6 K/mm3 (0.1-0.6); Monocytes Percent Auto 4.3 % (2.6-8.5); Neutrophils Absolute Auto 11.3 K/mm3 (1.3-6.7); Neutrophils Percent Auto 88.1 % (45.5-73.1); Platelet Count Result 247 k/mm3 (150-375); Red Blood Count 4.21 M/mm3 (4.2-5.4); Red Cell Distribution Width 12.8 % (11.5-14.5); White Blood Count 12.8 K/mm3 (4.5-10.0)
[2022-02-02 06:50] LABS: Anion Gap 3 mmol/L (8-16); Blood Urea Nitrogen 21 mg/dL (7-17); Calcium 8.6 mg/dL (8.4-10.2); Carbon Dioxide 26 mmol/L (22-30); Chloride 107 mmol/L (98-107); Estimated CRCL calculation 71 ml/min; Estimated Glomerular Filt Rate > 60; Glucose 157 mg/dL (65-110); Magnesium 2.2 mg/dL (1.6-2.3); Phosphorus 2.7 mg/dL (2.5-4.5); Sodium 136 mmol/L (137-145)
[2022-02-02 06:55] LABS: Potassium 3.8 mmol/L (3.4-5.0)
[2022-02-02] MEDS: ACETAMINOPHEN 325 MG TABLET 650 MG PO ×2 (08:27→22:05)
[2022-02-02] MEDS: ASPIRIN 81 MG CHEWABLE TABLET PO (08:28)
[2022-02-02] MEDS: PANTOPRAZOLE 40 MG TABLET PO ×2 (08:28→17:38)
[2022-02-02] MEDS: lisinopriL 20 MG TABLET PO (08:28)
[2022-02-02] MEDS: MORPHINE SULFATE (*CRX) 4 MG/ML INJ IV PUSH (09:19)
--- NOTE | 2022-02-02 09:28 | PC.NURSE ---
PATIENT C/O CHEST PAIN. HR 77, RESP 17. GAVE MORPHINE 4 MG IV ORDERED FOR PAIN. WILL CONTINUE TO MONITOR.
--- NOTE | 2022-02-02 10:17 | PM.PNCARD ---
Progress Note: A&P Additional Plan 66-year-old lady with: Episode of takotsubo stress cardiomyopathy which is being treated with NALLELY-inhibitor and beta-sangeeta. I will start some carvedilol this morning. She from my perspective is stable for discharge and I will ensure that she has follow-up appropriately scheduled in the office. Agree with the hospitalist that she certainly may have some chest pain also occurring from GI and or esophagus pathology since symptoms occurred this morning shortly after swallowing her food. Derrell Boateng MD [facility] Subjective Date/time seen: Date of service: 02/02/22 10:17 Interval history: Follow-up visit in this 66-year-old lady with: Chest pain initial concern regarding acute coronary syndrome/CAD. Angiogram yesterday results in the diagnosis of takotsubo stress cardiomyopathy. She had an episode of chest pain again this morning following eating her breakfast. Comfortable at this time. Reviewed the diagnosis with the patient and sister who are in the room this morning. The patient is on 50% of the lisinopril she had previously been on. I will intend on titrating in some carvedilol at this point. This was discussed with the patient as well as the family. Exam Const: General: comfortable and no acute distress HENMT: Mouth: Yes moist mucous membranes Eyes: Sclera: sclerae normal Pupils: Equal, round and reactive pupils present Neck: Neck: supple and no JVD Resp: Effort & Inspection: normal respiratory effort Auscultation: clear to auscultation bilaterally Cardio: Rate: regular rate Rhythm: regular rhythm GI: GI Palp: Yes Soft to palpation Auscultation: normal bowel sounds Skin: General skin exam: normal color Neuro: Cognition (Neuro): normal cognition Extrem: General: normal to inspection Other: Right groin puncture site looks fine no hematoma, normal pulses in the lower extremity Objective Data Vital Signs Vital Signs: Vital Signs - 24 hr 02/01/22 12:00 02/01/22 14:00 02/01/22 16:00 Temperature 36.8 C 37.0 C Pulse Rate 80 54 L 57 L Respiratory Rate 16 11 L 11 L Blood Pressure 138/63 123/70 128/84 Pulse Oximetry 98 91 94 02/01/22 18:00 02/01/22 20:00 02/01/22 21:45 Temperature 36.4 C L Pulse Rate 88 83 79 Respiratory Rate 15 Blood Pressure 140/78 Pulse Oximetry 96 95 02/01/22 22:00 02/02/22 00:00 02/02/22 02:00 Temperature 36.6 C Pulse Rate 54 L 74 56 L Respiratory Rate 12 Blood Pressure 117/63 Pulse Oximetry 96 02/02/22 04:00 02/02/22 06:00 02/02/22 08:00 Temperature 36.5 C 36.4 C Pulse Rate 62 60 60 Respiratory Rate 15 12 Blood Pressure 141/59 H 141/59 H Pulse Oximetry 96 99 Intake/Output Intake/Output: Intake & Output 01/30/22 01/31/22 02/01/22 02/02/22 23:59 23:59 23:59 23:59 Intake Total 1920 120 Output Total 1100 800 Balance 820 -680 Meds/Results Medications: Active Medications Generic Name Dose Route Start Last Admin Trade Name Freq PRN Reason Stop Dose Admin Acetaminophen 650 mg 01/31/22 21:22 02/02/22 08:27 Acetaminophen 325 Mg Tablet PO 650 mg Q4H PRN Administration Mild Pain (1-3) or Fever Aspirin 81 mg 02/01/22 08:00 02/02/22 08:28 Aspirin 81 Mg Chewable Tablet PO 81 mg DAILY@0800 LUIS Administration Atorvastatin Calcium 40 mg 02/01/22 21:00 02/01/22 20:13 Atorvastatin 40 Mg Tablet PO 40 mg HS LUIS Administration Carvedilol 6.25 mg 02/02/22 21:00 Carvedilol 6.25 Mg Tablet PO Q12HR LUIS Diphenhydramine HCl 25 mg 02/01/22 21:15 Diphenhydramine Hcl Inj 50 Mg/Ml Vial IV PUSH Q4H PRN Itching Lisinopril 20 mg 02/02/22 09:00 02/02/22 08:28 Lisinopril 20 Mg Tablet PO 20 mg QAM LUIS Administration Morphine Sulfate 4 mg 01/31/22 17:19 02/02/22 09:19 Morphine Sulfate (*Crx) 4 Mg/Ml Inj IV PUSH 4 mg Q2H PRN Administration Pain Rated 7-10 Ondansetron HCl 4 mg 01/31/22 17:19 Ondansetron Inj
--- NOTE | 2022-02-02 14:12 | PM.IMPN ---
Progress Note: A&P Assessment and Plan (1) Chest pain: Qualifiers: Chest pain type: unspecified Qualified Code(s): R07.9 - Chest pain, unspecified Code(s): R07.9 - Chest pain, unspecified Status: Acute Assessment and Plan: Patient presented the ER on 01/31/2022 with complains of chest pain EKG showed inferolateral T-wave inversions but noted in August; EKG showing more pronounced inferior T wave inversions Troponin were elevated 2.1 -> 5.04 -> 5.35 Patient given ASA, NTP and Metoprolol IV in ED Patient admitted to ICU on NTG drip and Heparin drip Patient is allergic to shellfish and iodine so being premedicated for heart cath which she had on 02/01/22 Leon the elevated Troponin related to the Takotsubo CMP Lipid levels noted. Continue medical management. Cardiology consulted and appreciate their input (2) Takotsubo cardiomyopathy: Code(s): I51.81 - Takotsubo syndrome Status: Acute Assessment and Plan: Patient presents with CP Positive Troponin and EKG changes LHC showing right coronary dominant circulation with mild luminal irregularities are seen in the proximal RCA but overall, no significant coronary disease angiographically. She does have apical hypokinesia typical of takotsubo stress cardiomyopathy Lisinopril dose decreased and Coreg added (3) Bradycardia: Code(s): R00.1 - Bradycardia, unspecified Status: Acute Assessment and Plan: Patient noted to be bradycardic Leon possibly related to undiagnosed sleep apnea. Apnea link done last night showing AHI 16 and RI 19. Plan for outpatient sleep study. Patient made aware (4) Essential (primary) hypertension: Code(s): I10 - Essential (primary) hypertension Status: Acute Assessment and Plan: Patient with hx of HTN Takes Lasix 20mg and Lisinopril 40mg daily at home Metoprolol given in ED but held since patient is bradycardic Coreg started given her Takotsubo (5) GERD (gastroesophageal reflux disease): Code(s): K21.9 - Gastro-esophageal reflux disease without esophagitis Status: Acute Assessment and Plan: As above. Leon the chest pain this morning related to esophageal spasm. Continue pantoprazole. Add mylanta prn (6) Contrast media allergy: Code(s): Z91.041 - Radiographic dye allergy status Status: Acute Assessment and Plan: Patient was premedicated with prednisone, Benadryl, famotidine for left heart catheterization. She tolerated the procedure well. Some mild redness the chest last night but this has resolved. No further evidence of allergic reaction to the contrast media. Continue to follow. (7) Morbid obesity with BMI of 40.0-44.9, adult: Code(s): E66.01 - Morbid (severe) obesity due to excess calories; Z68.41 - Body mass index [BMI] 40.0-44.9, adult Status: Acute Assessment and Plan: BMI 41.5. Obesity is contributing to her other medical problems. Discuss benefits of eating healthy lifestyle. Dietary consult. Subjective Date/time seen: 02/02/22 14:12 Interval history: 66yo female with HTN here for chest pain and found to have NSTEMI Patient did well last night but this morning developed chest pain about 10 minutes after eating. She developed abdominal discomfort that radiated up into her chest. She felt like a vice and ?stabbing in the back?. No symptoms after dinner last night. She also complains of face swelling but this is intermittent and chronic few years. She has been up walking to the bathroom. She has allergies to shellfish but no other food allergies that she is aware of. She did have some redness in the upper chest last night but no treatment was required. She did tolerate the ApneaLink last night. Exam Narrative: AF 97.4 141/77 76 13 97% ra Gen - NARD Chest - CTA bilaterally, nml RR CV - RRR S1/S2. Tele showing bradycardia at times Abd -soft. Nontender
[2022-02-02] MEDS: MAG HYDROX/AL HYDROX/SIMETH 30 ML UDC PO (17:38)
[2022-02-02] MEDS: carvediloL 6.25 MG TABLET PO (20:08)
[2022-02-02] MEDS: ATORVASTATIN 40 MG TABLET PO (20:08)
[2022-02-03] VITALS (8 sets, daily range): BP systolic 102–144; BP diastolic 48–82; PULSE 54–69; RESP 14–15; TEMP 36.7–36.8; O2SAT 97–100
[2022-02-03] MEDS: ACETAMINOPHEN 325 MG TABLET 650 MG PO (06:25)
[2022-02-03] MEDS: ASPIRIN 81 MG CHEWABLE TABLET PO (08:03)
[2022-02-03] MEDS: carvediloL 6.25 MG TABLET PO (08:03)
[2022-02-03] MEDS: MAG HYDROX/AL HYDROX/SIMETH 30 ML UDC PO (08:04)
[2022-02-03] MEDS: lisinopriL 20 MG TABLET PO (08:04)
[2022-02-03] MEDS: PANTOPRAZOLE 40 MG TABLET PO (08:04)
--- NOTE | 2022-02-03 09:08 | WPDCDIQUERY2 ---
CDI Query Clarification Request -01/31 ER physician documented: Attestation: I personally reviewed and interpreted this ECG as follows : ECG completion date: 01/31/22 ECG completion time: 18:00 Interpretation: Normal sinus rhythm at 67 bpm, left ventricular hypertrophy and ST and T change, abnormal EKG -01/31 ER physician documented: Clinical Impression: Non-STEMI (non-ST elevated myocardial infarction) -02/01 Cardiac Catherization report: -Apical hypokinesia as described above pattern is typical of takotsubo stress cardiomyopathy and Diagnosis was changed from NSTEMI to Takotsubo stress cardiomyopathy. For coding purposes please clarify if NSTEMI has been ruled out, ruled in or unable to determine
--- NOTE | 2022-02-03 09:53 | PM.PNCARD ---
Progress Note: A&P Assessment and Plan (1) Takotsubo cardiomyopathy: Code(s): I51.81 - Takotsubo syndrome Status: Acute Assessment and Plan: Continue carvedilol, lisinopril and inpatient regimen. Follow-up with Dr. Boateng (2) Chest pain: Qualifiers: Chest pain type: unspecified Qualified Code(s): R07.9 - Chest pain, unspecified Code(s): R07.9 - Chest pain, unspecified Status: Acute Assessment and Plan: Combination of takotsubo cardiomyopathy. She also has some pain upon eating, consider peptic ulcer disease. DC naproxen. Continue PPI (3) Essential (primary) hypertension: Code(s): I10 - Essential (primary) hypertension Status: Acute Assessment and Plan: Improved and up titration is needed as an outpatient (4) GERD (gastroesophageal reflux disease): Code(s): K21.9 - Gastro-esophageal reflux disease without esophagitis Status: Acute Assessment and Plan: Continue PPI. Subjective Date/time seen: 02/03/22 09:53 Interval history: Follow-up visit in this 66-year-old lady with: Chest pain initial concern regarding acute coronary syndrome/CAD. Angiogram yesterday results in the diagnosis of takotsubo stress cardiomyopathy. Date of service 02/03/2022: Still has some epigastric discomfort after eating. She has no significant swelling or shortness of breath and no groin pain Review of Systems Review of Systems: All systems reviewed & are unremarkable except as noted in HPI and below Constitutional: Constitutional: Denies weakness Eyes: Eyes: Denies blurry vision ENT: Reports Normal hearing present Cardiovascular: Cardiovascular: Reports chest pain Respiratory: Respiratory: Denies dyspnea Gastrointestinal: Gastrointestinal: Reports abdominal pain and Reports diarrhea Genitourinary: Genitourinary: Denies flank pain Musculoskeletal: Musculoskeletal: Denies neck pain Integumentary/Breasts: Skin/Breast: Denies dry skin Neurologic: Denies headache(s) Psychiatric: Psychiatric: Denies confusion Endocrine: Endocrine: Denies change in body appearance Hematologic/Lymphatic: Hematologic/Lymphatic: Denies easy bleeding Allergic/Immunologic: Allergic/Immunologic: Denies GI upset with certain foods Exam Const: General: comfortable and no acute distress HENMT: Mouth: Yes moist mucous membranes Eyes: Sclera: sclerae normal Pupils: Equal, round and reactive pupils present Neck: Neck: supple and no JVD Resp: Effort & Inspection: normal respiratory effort Auscultation: clear to auscultation bilaterally Cardio: Rate: regular rate Rhythm: regular rhythm GI: Auscultation: normal bowel sounds Skin: General skin exam: normal color Neuro: Cranial nerves: Yes Equal, round and reactive pupils present Cognition (Neuro): normal cognition Extrem: General: normal to inspection Psych: Appearance: grossly normal Objective Data Vital Signs Vital Signs: Vital Signs - 24 hr 02/02/22 10:00 02/02/22 11:34 02/02/22 12:00 Temperature 36.3 C L Pulse Rate 74 76 77 Respiratory Rate 13 Blood Pressure 141/77 H Pulse Oximetry 97 02/02/22 14:00 02/02/22 16:00 02/02/22 16:04 Temperature 36.3 C L Pulse Rate 81 62 Respiratory Rate 14 Blood Pressure 141/78 H Pulse Oximetry 96 96 02/02/22 18:00 02/02/22 19:39 02/02/22 20:00 Temperature 36.5 C Pulse Rate 73 79 73 Respiratory Rate 19 18 Blood Pressure 164/117 H Pulse Oximetry 98 02/02/22 20:08 02/02/22 22:00 02/02/22 23:00 Temperature Pulse Rate 70 88 Respiratory Rate Blood Pressure Pulse Oximetry 97 02/02/22 23:09 02/02/22 23:14 02/03/22 00:00 Temperature 36.4 C Pulse Rate 61 62 63 Respiratory Rate 12 13 Blood Pressure 146/86 H Pulse Oximetry 97 02/03/22 02:00 02/03/22 03:40 02/03/22 04:00 Temperature 36.7 C Pulse Rate 54 L 54 L 62 Respiratory Rate 14 15 Blood Pressure 102/48 L Pulse Oxi
--- NOTE | 2022-02-03 10:01 | P.DS_ITS ---
DS: Admitting Diagnosis Discharge Date 02/03/22 Admitting Diagnosis Chest pain DS: Discharge Diagnosis Discharge Diagnosis (1) Chest pain: Qualifiers: Chest pain type: unspecified Qualified Code(s): R07.9 - Chest pain, unspecified Code(s): R07.9 - Chest pain, unspecified Status: Acute Assessment and Plan: Patient presented the ER on 01/31/2022 with complains of chest pain * EKG showed inferolateral T-wave inversions but noted in August; Repeat EKG showing more pronounced inferior T wave inversions * Troponin were elevated 2.1 -> 5.04 -> 5.35 * Patient given ASA, NTP and Metoprolol IV in ED * Patient admitted to ICU on NTG drip and Heparin drip * Patient is allergic to shellfish and iodine so was premedicated for heart cath which she had on 02/01/22 (results as below) * [place] the elevated Troponin related to the Takotsubo CMP and not NSTEMI; NSTEMI RULED OUT * Lipid levels noted. Treated with medical management. * Cardiology consulted and appreciate their input (2) Takotsubo cardiomyopathy: Code(s): I51.81 - Takotsubo syndrome Status: Acute Assessment and Plan: Patient presents with CP * Positive Troponin and EKG changes * LHC showing right coronary dominant circulation with mild luminal irregularities are seen in the proximal RCA but overall, no significant coronary disease angiographically. EF 40-45%. She does have apical hypokinesia typical of takotsubo stress cardiomyopathy * Lisinopril dose decreased and Coreg added which she tolerated well. (3) Bradycardia: Code(s): R00.1 - Bradycardia, unspecified Status: Acute Assessment and Plan: Patient noted to be bradycardic * [place] possibly related to undiagnosed sleep apnea. * Apnea link done last night showing AHI 16 and RI 19. * Plan for outpatient sleep study. Patient made aware. * She tolerated the addition of the Coreg. (4) Essential (primary) hypertension: Code(s): I10 - Essential (primary) hypertension Status: Acute Assessment and Plan: Patient with hx of HTN * Takes Lasix 20mg and Lisinopril 40mg daily at home * Metoprolol given in ED but held since patient is bradycardic * Coreg started given her Takotsubo and she toelrated this (5) GERD (gastroesophageal reflux disease): Code(s): K21.9 - Gastro-esophageal reflux disease without esophagitis Status: Acute Assessment and Plan: As above. [place] the chest pain on 02/02 morning related to esophageal spasm. We continued pantoprazole. (6) Contrast media allergy: Code(s): Z91.041 - Radiographic dye allergy status Status: Acute Assessment and Plan: Patient was premedicated with prednisone, Benadryl, famotidine for left heart catheterization. She tolerated the procedure well. Some mild redness the chest but this has resolved. No further evidence of allergic reaction to the contrast media. (7) Morbid obesity with BMI of 40.0-44.9, adult: Code(s): E66.01 - Morbid (severe) obesity due to excess calories; Z68.41 - Body mass index [BMI] 40.0-44.9, adult Status: Acute Assessment and Plan: BMI 41.5. Obesity is contributing to her other medical problems. Discuss benefits of eating healthy lifestyle. Discussed that her pill burden is very high with all the supplements she takes. DS: Summary Hospital Course Reason for hospitalization: 66yo female with HTN here for chest pain and found to have elevated Troponin. Please see H&P for details
--- NOTE | 2022-02-03 10:01 | PM.DS ---
DS: Admitting Diagnosis Discharge Date 02/03/22 Admitting Diagnosis Chest pain DS: Discharge Diagnosis Discharge Diagnosis (1) Chest pain: Qualifiers: Chest pain type: unspecified Qualified Code(s): R07.9 - Chest pain, unspecified Code(s): R07.9 - Chest pain, unspecified Status: Acute Assessment and Plan: Patient presented the ER on 01/31/2022 with complains of chest pain EKG showed inferolateral T-wave inversions but noted in August; Repeat EKG showing more pronounced inferior T wave inversions Troponin were elevated 2.1 -> 5.04 -> 5.35 Patient given ASA, NTP and Metoprolol IV in ED Patient admitted to ICU on NTG drip and Heparin drip Patient is allergic to shellfish and iodine so was premedicated for heart cath which she had on 02/01/22 (results as below) [place] the elevated Troponin related to the Takotsubo CMP and not NSTEMI; NSTEMI RULED OUT Lipid levels noted. Treated with medical management. Cardiology consulted and appreciate their input (2) Takotsubo cardiomyopathy: Code(s): I51.81 - Takotsubo syndrome Status: Acute Assessment and Plan: Patient presents with CP Positive Troponin and EKG changes LHC showing right coronary dominant circulation with mild luminal irregularities are seen in the proximal RCA but overall, no significant coronary disease angiographically. EF 40-45%. She does have apical hypokinesia typical of takotsubo stress cardiomyopathy Lisinopril dose decreased and Coreg added which she tolerated well. (3) Bradycardia: Code(s): R00.1 - Bradycardia, unspecified Status: Acute Assessment and Plan: Patient noted to be bradycardic [place] possibly related to undiagnosed sleep apnea. Apnea link done last night showing AHI 16 and RI 19. Plan for outpatient sleep study. Patient made aware. She tolerated the addition of the Coreg. (4) Essential (primary) hypertension: Code(s): I10 - Essential (primary) hypertension Status: Acute Assessment and Plan: Patient with hx of HTN Takes Lasix 20mg and Lisinopril 40mg daily at home Metoprolol given in ED but held since patient is bradycardic Coreg started given her Takotsubo and she toelrated this (5) GERD (gastroesophageal reflux disease): Code(s): K21.9 - Gastro-esophageal reflux disease without esophagitis Status: Acute Assessment and Plan: As above. [place] the chest pain on 02/02 morning related to esophageal spasm. We continued pantoprazole. (6) Contrast media allergy: Code(s): Z91.041 - Radiographic dye allergy status Status: Acute Assessment and Plan: Patient was premedicated with prednisone, Benadryl, famotidine for left heart catheterization. She tolerated the procedure well. Some mild redness the chest but this has resolved. No further evidence of allergic reaction to the contrast media. (7) Morbid obesity with BMI of 40.0-44.9, adult: Code(s): E66.01 - Morbid (severe) obesity due to excess calories; Z68.41 - Body mass index [BMI] 40.0-44.9, adult Status: Acute Assessment and Plan: BMI 41.5. Obesity is contributing to her other medical problems. Discuss benefits of eating healthy lifestyle. Discussed that her pill burden is very high with all the supplements she takes. DS: Summary Hospital Course Reason for hospitalization: 66yo female with HTN here for chest pain and found to have elevated Troponin. Please see H&P for details Hospital Course: Please see above for details of hospital course Status at Discharge Cognitive/behavioral status at discharge: stable Time Spent with Patient Time attestation: Total time spent providing and/or coordinating discharge services: 37 minutes Time spent: Greater than 30 minutes Exam Narrative: AF 98.3 144/82 66 14 100% ra Gen - NARD Chest - CTA bilaterally, nml RR CV - RRR S1/S2. Tele showing PVCs and occasional
--- NOTE | 2022-02-03 10:38 | PC.NURSE ---
Called Lili with outpatient sleep center scheduling department at [phone]. Was informed that outpatient sleep studies will need to be ordered by patients PCP.
--- NOTE | 2022-02-03 11:16 | PCDIET ---
Physician consult on heart healthy/weight loss education. See Nutritional Teaching Intervention. Thank you for the consult.
== END 2022-02-03 11:53 | disposition home or self-care (01) | DRG 287 ==
LOC: ANHED 17:23 → ANHICU 17:55
PROVIDERS: Emergency Medicine; Internal Medicine; Specialist; Admitting Provider Internal Medicine; Emergency Provider Emergency Medicine; PCP Family Medicine Adolescent Medicine; Visit Provider Internal Medicine
PROC: 4A023N7 Measurement of Cardiac Sampling and Pressure, Left Heart, Percutaneous Approach (ICD-10-PCS; CPT 93452; principal; 2022-02-01 13:00)
PROC: 4A023N7 Measurement of Cardiac Sampling and Pressure, Left Heart, Percutaneous Approach (ICD-10-PCS; 2022-02-01 13:00)
DX: I51.81 Takotsubo syndrome (principal); Z68.41 Body mass index [BMI] 40.0-44.9, adult; R77.8 Other specified abnormalities of plasma proteins; Z91.041 Radiographic dye allergy status; E66.01 Morbid (severe) obesity due to excess calories; I10 Essential (primary) hypertension; K21.9 Gastro-esophageal reflux disease without esophagitis; M79.7 Fibromyalgia; R00.1 Bradycardia, unspecified; Z85.048 Personal history of other malignant neoplasm of rectum, rectosigmoid junction, and anus; Z90.49 Acquired absence of other specified parts of digestive tract; Z28.21 Immunization not carried out because of patient refusal
CPT/HCPCS: 36415; 36600; 71046; 71250; 80048; 80053; 80061; 81001; 83690; 83735; 83880; 84100; 84484; 85025; 85380; 85610; 85730; 93005; 93458; 94762; 96374; 96375; 99291; A9270; C1760; C1887; C1894; G0269; J0171; J0583; J1200; J1644; J2250; J2270; J2405; J2930; J3010; J7030; J7040; J7512

== ENCOUNTER 2022-10-19 21:06 | Emergency (ER) | payer MEDICARE, OTHER, SELFPAY ==
--- NOTE | ~2022-10-19 | XR_ITS ---
EXAM: XR shoulder LT min 2V DATE: 10/19/2022 21:25 HISTORY: FALL TONIGHT PT HUNCHED OVER IN PAIN/LEANING INTO L SIDE . COMPARISON: None available. FINDINGS: Normal mineralization. Anterior inferior dislocation of the left humeral head. Irregularit y at the distal end of the clavicle probably related to artifact. Significant inferior osteophytosis at the AC joint. No lytic or blastic lesion. No erosion or periosteal change. Soft tissues within nor mal limits. IMPRESSION: Anteroinferior left shoulder dislocation. Probable artifact versus nondisplaced fracture overlying the AC joint, attention in follow-up radiographs. Reviewed, dictated and finalized at location K. IT REVIEW ASSISTANT IMPRESSION: Anteroinferior left shoulder dislocation. Probable artifact versus nondisplaced fracture overlying the AC joint, attention in follow-up radiograph paty
--- NOTE | ~2022-10-19 | XR_ITS ---
EXAM: XR shoulder LT min 2V DATE: 10/19/2022 22:00 HISTORY: Post reduction . COMPARISON: None available. FINDINGS/IMPRESSION: Successful interval reduction of the left shoulder. Fractured inferior osteophyt e at the inferior aspect of the AC joint. Reviewed, dictated and finalized at location K. WAY ENGINEER
--- NOTE | 2022-10-19 21:08 | ED.UPPEXIN ---
HPI - Extremity Injury (Upper) General Chief Complaint: Fall Stated Complaint: left shoulder injury Time Seen by Provider: 10/19/22 21:07 Source: patient and RN notes reviewed Mode of arrival: ambulatory Limitations: no limitations History of Present Illness HPI narrative: Patient states she was home and backed up towards the gypsum roofer the gypsum roofer door was open and she stumbled backwards onto her left shoulder. Says she has some tingling in her fingers. She denies any head injury. complaint: injury to: left and shoulder Onset (ago): hour(s) (1) Other Extremity Injury: Left: shoulder Other injuries: none Handedness: right Place: home Severity: severe Relieving factors: none Exacerbating factors: movement of extremity Context: fall Associated symptoms: denies other symptoms Related Data Home Medications Medication Instructions Recorded Confirmed buspirone 5 mg tablet 5 mg PO ONCE 09/08/22 09/08/22 carvedilol 6.25 mg tablet (Coreg) 6.25 mg PO ONCE 09/08/22 09/08/22 Allergies Allergy/AdvReac Type Severity Reaction Status Date / Time shellfish derived Allergy Severe Swelling Verified 09/08/22 11:11 of Lip/Tongue/Throat, RASH iodine Allergy Unknown Swelling Verified 09/08/22 11:11 of Lip/Tongue/Throat Shrimp Allergy Severe THROAT Uncoded 09/08/22 11:11 SWELLING,RASH Review of Systems Review of Systems: All systems reviewed & are unremarkable except as noted in HPI and below PMFSH Past Medical History Medical History Depression Fibromyalgia History of rectal or anal cancer 08/26 Squamous cell Hypertension Surgical History Surgical History History of appendectomy History of tonsillectomy History of tubal ligation Family History Family History Mother Family history of malignant neoplasm leukemia Father Family history of malignant neoplasm lung cancer Other Cerebrovascular accident Diabetes mellitus Hypertension Social History Social History Smoking status: Never smoker Second hand tobacco smoke exposure: No Alcohol intake: never Alcohol use details: socially Substance use: never Substance use type: does not use Additional occupation/education comments: [employer] Gender identity (if verbalized by the patient): Female Sexual Orientation (if Verbalized by the Patient): Straight or Heterosexual Spiritual care concerns: No Agree to blood products: Yes Exam Const: General: in distress moderate (pain) Nutritional Appearance: well nourished and obese Orientation/consciousness: patient oriented x3 Limitations: no limitations HENMT: Head: normal to inspection Ears: external ears normal Eyes: Conjunctivae: conjunctivae normal Pupils: Equal, round and reactive pupils present EOM: EOMs intact bilaterally Neck: Neck: normal visual inspection Resp: Effort & Inspection: normal respiratory effort Auscultation: clear to auscultation bilaterally Cardio: Rate: regular rate Rhythm: regular rhythm GI: GI Palp: Yes Soft to palpation and No Tenderness to palpation present (GI) Auscultation: normal bowel sounds Back/Spine/Pelvis: Cervical Spine: cervical ROM normal Thoracic/Lumbar Spine: thoraco-lumbar ROM normal Skin: General skin exam: normal color Rashes: no rashes Neuro: General: patient oriented x3, no focal motor deficits and CN's II-XI intact bilaterally Speech: normal speech Gait exam (Neuro): Normal gait present Extrem: General: normal exam except as noted and no clubbing, cyanosis or edema Left upper extremity: shoulder/upper arm abnormal to inspection obvious dislocation, tenderness of the proximal humerus and abnormal ROM held in an abnormal fashion in ABduction Psych: Mental Status: mental status venancio
[2022-10-19 21:10] VITALS: BP 175/90; PULSE 90; RESP 20; TEMP 37; O2SAT 96
[2022-10-19] MEDS: HYDROmorphone HCL INJ (*CRX) 2 MG/ML VIAL 1 MG IV PUSH (21:36)
[2022-10-19] MEDS: MIDAZOLAM HCL (*CRX) 2 MG/2 ML VIAL 1 MG IV PUSH (21:38)
[2022-10-19] MEDS: ETOMIDATE 20 MG/10 ML AMPUL 10 MG IV PUSH (21:43)
--- NOTE | 2022-10-19 22:29 | PC.NURSE ---
last time patient ate & drank 7p,
--- NOTE | 2022-10-19 22:30 | PC.NURSE ---
see sedation written records
[2022-10-19 22:54] VITALS: BP 140/88; PULSE 80; RESP 20; TEMP 37; O2SAT 100
--- NOTE | 2022-10-19 22:57 | PC.NURSE ---
[id number] patient standing walking slow gait steady. answers date & time correctly. family at bedside sedation discharge inst reviewed. sling intact, good pulses to left hand
== END 2022-10-19 22:58 | disposition home or self-care (01) ==
PROVIDERS: Emergency Provider Emergency Medicine
DX: S43.005A Unspecified dislocation of left shoulder joint, initial encounter (principal); S42.122A Displaced fracture of acromial process, left shoulder, initial encounter for closed fracture; W22.01XA Walked into wall, initial encounter
CPT/HCPCS: 23605; 73030; 99285; A4565; J1170; J2250

== ENCOUNTER 2022-12-12 01:03 | Emergency (ER) | payer MEDICARE, OTHER, SELFPAY ==
--- NOTE | ~2022-12-12 | CT_ITS ---
EXAMINATION: CT cervical spine wo con DATE: 12/12/2022 01:50 INDICATION: Neck pain. Head injury. TECHNIQUE: Computed tomography (CT) of the cervical spine was performed without intravenous contrast. Automated exposure control and iterative reconstruction technique were employed. The dose-length pro duct was 434.00 mGy-cm. COMPARISON: CT cervical spine 08/16/2018 FINDINGS: There is a small left mastoid effusion. Bone alignment is normal. Vertebral body heights ar e normal. There is severely decreased disc height at C5-C6 and C6-C7 with endplate remodeling. The fo llowing disc levels are specifically discussed: C2-C3: There is mild left uncovertebral joint osteoarthritis. There is mild bilateral facet joint ost eoarthritis. There is no neural foraminal stenosis. There is no central canal stenosis. C3-C4: There is no uncovertebral joint osteoarthritis. There is moderate right and mild left facet riya int osteoarthritis. There is no neural foraminal stenosis. There is no central canal stenosis. C4-C5: There is no uncovertebral joint osteoarthritis. There is mild bilateral facet joint osteoarthr itis. There is no neural foraminal stenosis. There is no central canal stenosis. C5-C6: There is severe bilateral uncovertebral joint osteoarthritis. There is mild bilateral facet riya int osteoarthritis. There is moderate right and mild left neural foraminal stenosis. There is mild ce ntral canal stenosis. C6-C7: There is severe bilateral uncovertebral joint osteoarthritis. There is mild right and moderate left facet joint osteoarthritis. There is mild bilateral neural foraminal stenosis. There is mild ce ntral canal stenosis. C7-T1: There is no uncovertebral joint osteoarthritis. There is severe bilateral facet joint osteoart hritis. There is mild bilateral neural foraminal stenosis. There is no central canal stenosis. IMPRESSION: 1. No fracture. 2. Severe cervical spondylosis. Reviewed, dictated and finalized at location A. [employer]CTION ADVISORY SERVICES MANAGER
--- NOTE | ~2022-12-12 | XR_ITS ---
EXAMINATION: XR pelvis 1-2V DATE: 12/12/2022 01:51 INDICATION: Fall. TECHNIQUE: An anteroposterior view of the pelvis was obtained on 2 radiographs. COMPARISON: None. FINDINGS: Bone alignment is normal. No fracture. There is mild osteoarthritis of the hips. There is m ild lumbar spondylosis. There are suture anchors in the parasymphyseal pubis on either side. IMPRESSION: 1. Mild osteoarthritis of the hips. Reviewed, dictated and finalized at location A. PIT WORKER
--- NOTE | ~2022-12-12 | CT_ITS ---
EXAMINATION: CT brain wo con DATE: 12/12/2022 01:50 INDICATION: Head injury. Headache. TECHNIQUE: Computed tomography (CT) of the head was performed without intravenous contrast. The mA wa s adjusted according to patient size. Iterative reconstruction technique was employed. The dose-lengt h product was 605.33 mGy-cm. COMPARISON: Head CT 06/15/2018 FINDINGS: There are scattered areas of low attenuation in the cerebral white matter. There is no intr acranial hemorrhage, acute infarction, or abnormal intracranial mass lesion. The ventricles are ana l in size. There is mucosal thickening in the paranasal sinuses. There are likely changes of ocular l ens replacement surgeries. There is a left mastoid effusion. There is left posterior scalp soft tissu e swelling. IMPRESSION: 1. Stable mild nonspecific cerebral white matter disease, which likely represents chronic small vesse l ischemic disease. Reviewed, dictated and finalized at location A. ETIC COMPUTATOR IMPRESSION: 1. Stable mild nonspecific cerebral white matter disease, which likely represen ts chronic small vessel ischemic disease.
--- NOTE | ~2022-12-12 | XR_ITS ---
EXAMINATION: XR chest 1V portable DATE: 12/12/2022 01:51 INDICATION: Fall. TECHNIQUE: A single frontal view of the chest was obtained on 2 radiographs. COMPARISON: Chest 2 views 01/31/2022, chest CT 01/31/2022 FINDINGS: The chest demonstrates clear lungs without pneumonia, pleural effusion, or pneumothorax. Th e heart size is normal. IMPRESSION: 1. No acute cardiopulmonary disease. Reviewed, dictated and finalized at location A. [facility] [employer]
[2022-12-12 01:03] VITALS: BP 181/99; PULSE 86; RESP 20; TEMP 36; O2SAT 97
--- NOTE | 2022-12-12 01:10 | ED.FALL ---
HPI - Fall General Chief Complaint: Fall Stated Complaint: FALL Time Seen by Provider: 12/12/22 01:05 Source: patient and family Mode of arrival: ambulatory History of Present Illness HPI Narrative: 67 year with history of obesity hypertension, depression fibromyalgia rectal/ cancer status post treatment on 08/2014, takotsubo cardiomyopathy with a negative cardiac catheterization, accidental fall on 10/19/2022 left shoulder dislocation presents to the ER after she stepped on ice and fell backwards. She presents with -- occipital hematoma. Headache -- questionable loss of consciousness -- nausea without any vomiting. She denied any neck or back pain. No other injuries noted. patient is on baby aspirin. The patient is not on any anticoagulation. MD complaint: fall Onset (ago): hour(s) ( 1 hour ago) Fall from: standing Fall witnessed: no Place fall occurred: home Loss of consciousness: unsure Prolonged down time: no Symptoms prior to fall: none Context: tripped/slipped Location of injury: head Associated symptoms (after fall): headache Related Data Home Medications Medication Instructions Recorded Confirmed buspirone 5 mg tablet 5 mg PO ONCE 09/08/22 11/29/22 carvedilol 6.25 mg tablet (Coreg) 6.25 mg PO ONCE 09/08/22 11/29/22 Allergies Allergy/AdvReac Type Severity Reaction Status Date / Time shellfish derived Allergy Severe Swelling Verified 12/12/22 02:23 of Lip/Tongue/Throat, RASH iodine Allergy Unknown Swelling Verified 12/12/22 02:23 of Lip/Tongue/Throat Shrimp Allergy Severe THROAT Uncoded 11/29/22 11:04 SWELLING,RASH Review of Systems Review of Systems: All systems reviewed & are unremarkable except as noted in HPI and below Constitutional: Constitutional: Reports as per HPI and Reports no additional constitutional complaints Eyes: Eyes: Reports as per HPI and Reports no additional eye complaints ENT: Reports system reviewed and no additional complaints, except as documented and Reports as per HPI Cardiovascular: Cardiovascular: Reports as per HPI and Reports no additional cardiovascular complaints Respiratory: Respiratory: Reports as per HPI and Reports no additional respiratory complaints Gastrointestinal: Gastrointestinal: Reports as per HPI and Reports no additional gastrointestinal complaints Genitourinary: Genitourinary: Reports no additional female genitourinary complaints Musculoskeletal: Musculoskeletal: Reports no additional musculoskeletal complaints and Reports as per HPI Comments: Denied neck pain or back pain. Integumentary/Breasts: Skin/Breast: Reports system reviewed and no additional complaints, except as docu and Reports as per HPI Neurologic: Reports system reviewed and no additional complaints, except as documented and Reports as per HPI Comments: No focal neuro deficit noted. Psychiatric: Psychiatric: Reports no additional psychiatric complaints and Reports as per HPI Endocrine: Endocrine: Reports no additional endocrine complaints and Reports as per HPI Hematologic/Lymphatic: Hematologic/Lymphatic: Reports no additional hematologic/lymphatic complaints and Reports as per HPI Allergic/Immunologic: Allergic/Immunologic: Reports no additional allergic/immunologic complaints and Reports as per HPI PMFSH Past Medical History Medical History Depression Dislocation of left shoulder joint Fibromyalgia History of rectal or anal cancer 08/26 Squamous cell Hypertension Surgical History Surgical History History of appendectomy History of tonsillectomy History of tubal ligation Family History Family History Mother Family history of malignant neoplasm leukemia Father Family history of malignant neoplasm lung cancer Other Cerebrovascular accident
[2022-12-12] MEDS: ONDANSETRON HCL ODT 4 MG TABLET PO ×2 (01:23→02:28)
[2022-12-12] MEDS: HYDROmorphone HCL INJ (*CRX) 2 MG/ML VIAL 0.5 MG IM (01:25)
[2022-12-12 02:25] VITALS: BP 158/91; PULSE 67; RESP 18; O2SAT 97
== END 2022-12-12 02:34 | disposition home or self-care (01) ==
PROVIDERS: Emergency Provider Internal Medicine Critical Care Medicine; PCP Family Medicine Adolescent Medicine
DX: S00.03XA Contusion of scalp, initial encounter (principal); I10 Essential (primary) hypertension; F32.A Depression, unspecified; Z79.82 Long term (current) use of aspirin; W00.0XXA Fall on same level due to ice and snow, initial encounter; Y92.009 Unspecified place in unspecified non-institutional (private) residence as the place of occurrence of the external cause
CPT/HCPCS: 70450; 71045; 72125; 72170; 96372; 99284; A9270; J1170; L0150

== ENCOUNTER → 2023-02-15 08:33 | Outpatient (CLI) | payer MEDICARE, OTHER, SELFPAY ==
--- NOTE | ~2023-02-15 | US_ITS ---
EXAMINATION: US thyroid DATE: 02/15/2023 09:01 INDICATION: Thyrotoxicosis/hyperthyroidism. TECHNIQUE: Multiple ultrasound images of the thyroid were obtained. COMPARISON: None. FINDINGS: The right thyroid lobe measures 5.6 x 1.9 x 1.8 cm. The left thyroid lobe measures 5.5 x 2.4 x 1.7 c m. There is heterogeneous echogenicity and coarsened echotexture throughout the thyroid. There are m ultiple small solid hypoechoic nodules versus pseudonodules throughout both thyroid lobes. The larges t on the left is identical in height and width measuring 1.1 cm with smooth and ill-defined margins a nd without echogenic foci (TI-RADS 4, moderately suspicious , FNA if >=1.5 cm, annual followup is >=1 cm). The largest on the right is a wider than tall 7 mm very hypoechoic solid nodule with smooth mar gins and without echogenic foci (TI-RADS 5, highly suspicious , FNA if >=1.0 cm, annual followup is > 0.5 cm). IMPRESSION: 1. Mildly enlarged thyroid with heterogeneous echogenicity and coarsened echotexture consistent with thyroiditis. 2. Multiple small bilateral thyroid nodules versus pseudonodules, the largest on the left and 1.1 cm TI RADS 4 nodule in the largest on the right knee 0.7 cm TI RADS 5 nodule, both for which 1 year ultr asound follow-up would be recommended. Reviewed, dictated and finalized at location A. IMPRESSION: 1. Mildly enlarged thyroid with heterogeneous echogenicity and coarsened echote xture consistent with thyroiditis. 2. Multiple small bilateral thyroid nodules versus pseudonodules, the largest o n the left and 1.1 cm TI RADS 4 nodule in the largest on the right knee 0.7 cm TI RADS 5 nodule, both for which 1 year ultrasound follow-up would be recommend ed.
--- NOTE | ~2023-02-15 | US_ITS ---
US axilla LT DATE: 02/15/2023 08:58 INDICATION: Left axillary lumps TECHNIQUE: Real-time imaging and color flow imaging of the left axillary soft tissues COMPARISON: 08/21/2014 bilateral screening mammogram FINDINGS: There are 2 left axillary lymph nodes at the area of concern, one measuring 9 x 20 x 12 mm, the other 12 x 4.4 x 9 mm. The cortex of each of these nodes is uniform normal echogenicity and rela tively uniform thickness. The only available mammograms for comparison dates back to 08/21/2014. If the patient has not had a ma mmogram within the past year, bilateral screening mammogram with the recommended. IMPRESSION: Benign-appearing left axillary lymph nodes Recommendation: Bilateral screening mammogram if the patient has not had one within the past year Reviewed, dictated and finalized at Location A. Reviewed, dictated and finalized at location A. IMPRESSION: Benign-appearing left axillary lymph nodes Recommendation: Bilateral screening mammogram if the patient has not had one wi thin the past year
== END ==
PROVIDERS: PCP Family Medicine Adolescent Medicine; Visit Provider Physician Assistant
DX: E05.90 Thyrotoxicosis, unspecified without thyrotoxic crisis or storm (principal); R22.32 Localized swelling, mass and lump, left upper limb; E04.2 Nontoxic multinodular goiter
CPT/HCPCS: 76536; 76882

== ENCOUNTER 2023-03-06 13:54 | Outpatient (CLI) | payer MEDICARE, OTHER, SELFPAY ==
--- NOTE | ~2023-03-06 | NM_ITS ---
EXAMINATION: NM thyroid scan w uptake DATE: 03/07/2023 14:41 INDICATION: Hyperthyroidism. COMPARISON: Thyroid ultrasound 02/15/2023 TECHNIQUE: 0.358 mCi I-123 was administered orally. Scintigraphic images of the thyroid gland were o btained at 24 hours. Thyroid uptake was calculated by the technologist. FINDINGS: The thyroid uptake is 58% (normal 10-30%), with the right lobe measuring 26% uptake and the left 33%. There is no focal area of decreased or increased activity to suggest hypofunctioning or hyperfunctio clemente nodule. IMPRESSION: 1. Increased 24-hour iodine uptake, consistent with Graves' disease. Reviewed, dictated and finalized at location A.
== END 2023-03-06 13:55 | disposition home or self-care (01) ==
LOC: ANHIMG 13:56
PROVIDERS: PCP Family Medicine Adolescent Medicine; Visit Provider Internal Medicine Endocrinology, Diabetes & Metabolism
DX: E05.90 Thyrotoxicosis, unspecified without thyrotoxic crisis or storm (principal)
CPT/HCPCS: 78014; A9516

== ENCOUNTER → 2023-03-22 13:07 | Outpatient (CLI) | payer MEDICARE, OTHER, SELFPAY ==
--- NOTE | ~2023-03-22 | MR_ITS ---
EXAMINATION: MR brain/brain stem wo con DATE: 03/22/2023 13:48 INDICATION: Coarse tremors and new movement disorder TECHNIQUE: Magnetic resonance imaging (MRI) of the brain and brainstem was performed without intraven ous contrast. Sequences included sagittal and axial T1-weighted SE, axial diffusion-weighted FS SE, a xial T2*-weighted GRE, axial T2-weighted FLAIR, and axial T2-weighted FSE. Apparent diffusion coeffic ient (ADC) maps were created. COMPARISON: Head CT dated 12/12/2022 FINDINGS: There are no areas of restricted diffusion to suggest acute infarction. No intracranial hemorrhage or abnormal intracranial mass lesion. There are scattered areas of nonspecific increased T2-weighted si gnal intensity in the cerebral white matter, predominantly involving the deep and periventricular whi te matter. There are no intraparenchymal signal abnormalities seen on the other pulse sequences. The ventricles are symmetric and normal in size. There are no abnormal extra-axial fluid collections. Frederick w voids are seen in the cerebral arteries on the T2-weighted sequences consistent with their expected patency. Mucosal thickening the paranasal sinuses most prominent in the left maxillary and right fro ntal sinuses. Left mastoid effusion. Changes of bilateral intraocular lens replacement. IMPRESSION: 1. No acute intracranial process. 2. Mild scattered foci of nonspecific white matter T2 hyperintensity most likely related to chronic s mall vessel ischemic disease. Reviewed, dictated and finalized at location A. IMPRESSION: 1. No acute intracranial process. 2. Mild scattered foci of nonspecific white matter T2 hyperintensity most likel y related to chronic small vessel ischemic disease.
== END ==
PROVIDERS: PCP Family Medicine Adolescent Medicine; Visit Provider Family Medicine Adolescent Medicine
DX: G25.2 Other specified forms of tremor (principal); R93.0 Abnormal findings on diagnostic imaging of skull and head, not elsewhere classified
CPT/HCPCS: 70551

== ENCOUNTER 2023-07-20 07:25 | Outpatient (CLI) | payer MEDICARE, OTHER, SELFPAY ==
--- NOTE | ~2023-07-20 | CT_ITS ---
EXAMINATION: CT orbit BI wo con DATE: 07/20/2023 07:53 INDICATION: Thyroid eye disease. TECHNIQUE: Computed tomography (CT) of the orbits was performed without intravenous contrast. Automat ed exposure control and iterative reconstruction technique were employed. The dose-length product was 173.13 mGy-cm. COMPARISON: Head CT 12/12/2022, orbits CT 09/28/16 FINDINGS: There are likely changes of ocular lens replacement surgeries. There is mild enlargement of right inferior rectus muscle. There is no abnormal mass. There is rightward deviation of the nasal s eptum. There is mild mucosal thickening in the paranasal sinuses. IMPRESSION: 1. Mild enlargement of right inferior rectus muscle, which may be seen with thyroid ophthalmopathy or idiopathic orbital inflammation. Reviewed, dictated and finalized at location E. IMPRESSION: 1. Mild enlargement of right inferior rectus muscle, which may be seen with thy roid ophthalmopathy or idiopathic orbital inflammation.
== END 2023-07-20 07:26 | disposition home or self-care (01) ==
PROVIDERS: PCP Family Medicine Adolescent Medicine; Visit Provider Ophthalmology
DX: E05.90 Thyrotoxicosis, unspecified without thyrotoxic crisis or storm (principal)
CPT/HCPCS: 70480

== ENCOUNTER 2023-09-21 16:00 | Emergency (ER) | payer MEDICARE, OTHER, SELFPAY ==
[2023-09-21] VITALS (25 sets, daily range): BP systolic 161–193; BP diastolic 67–89; PULSE 46–588; RESP 13–23; TEMP 36.6–36.9; O2SAT 96–100
--- NOTE | ~2023-09-21 | CT_ITS ---
EXAMINATION: CT brain wo con DATE: 09/21/2023 16:47 INDICATION: Headache. Convulsions. TECHNIQUE: Computed tomography (CT) of the head was performed without intravenous contrast. The mA wa s adjusted according to patient size. Iterative reconstruction technique was employed. The dose-lengt h product was 605.33 mGy-cm. COMPARISON: Head CT 12/12/2022 FINDINGS: There are scattered areas of low attenuation in the cerebral white matter. There is no intr acranial hemorrhage, acute infarction, or abnormal intracranial mass lesion. The ventricles are ana l in size. The paranasal sinuses are clear. There is a left mastoid effusion. There are likely change s of ocular lens replacement surgeries. IMPRESSION: 1. Stable mild nonspecific cerebral white matter disease, which likely represents chronic small vesse l ischemic disease. Reviewed, dictated and finalized at location E. 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 Stable mild nonspecific cerebral white matter disease, which likely represen ts chronic small vessel ischemic disease.
--- NOTE | 2023-09-21 16:18 | ECG_ITS ---
Measurements Intervals [place] Rate: 50 P: 87 CT: 187 QRS: 6 QRSD: 106 T: -9 QT: 428 QTc: 391 Interpretive Statements SINUS BRADYCARDIA DELAYED PRECORDIAL R/S TRANSITION VOLTAGE CRITERIA FOR LVH NONSPECIFIC ST & T-WAVE ABNORMALITY- INF/LAT LEADS BASELINE ARTIFACT- I, II, III, AVR, AVF, V6 BORDERLINE ECG COMPARED TO ECG 01/31/2022 21:59:59 NO SIGNIFICANT CHANGES Electronically Signed On 09-21-2023 18:51:45 SIPHON OPERATOR by Jono Coyle D.O.
[2023-09-21] MEDS: SODIUM CHLORIDE 0.9% IV 1,000 ML 999 ML IV CONT (17:01)
[2023-09-21 17:11] LABS: Appearance Urine Clear (Clear); Basophils Absolute Auto 0.06 K/mm3 (0.00-0.10); Basophils Percent Auto 0.7 % (0.0-1.0); Bilirubin Urine Negative (Negative); Blood Urine Negative (Negative); Color Urine Light Yellow (Yellow); Eosinophils Absolute Auto 0.12 K/mm3 (0.02-0.50); Eosinophils Percent Auto 1.5 % (1.0-6.0); Glucose Urine UA Negative (Negative); Hematocrit 42.4 % (35.0-42.0); Hemoglobin 13.4 g/dL (11.7-13.8); Immature Granulocyte Absolute 0.02 K/mm3 (0.00-0.00); Immature Granulocyte Percent A 0.2 % (0.0-0.0); Ketones Urine Negative (Negative); Leukocyte Esterase Ur Trace LEU/UL (Negative); Lymphocytes Absolute Auto 3.06 K/mm3 (1.10-4.50); Lymphocytes Percent Auto 37.4 % (18.0-42.0); Mean Corpuscular HGB Conc 31.6 g/dL (32.0-36.0); Mean Corpuscular Volume 94.9 fL (78.0-102.0); Mean Platelet Volume 10.9 fl (9.2-11.8); Monocytes Absolute Auto 0.64 K/mm3 (0.10-0.90); Monocytes Percent Auto 7.8 % (2.0-11.0); Neutrophils Absolute Auto 4.3 K/mm3 (1.7-7.2); Neutrophils Percent Auto 52.4 % (50.0-70.0); Nitrate Urine Negative (Negative); Platelet Count Result 232 K/mm3 (150-420); Protein Urine Negative (Negative); Red Blood Count 4.47 M/mm3 (4.20-5.40); Red Cell Distribution Width 13.2 % (11.6-14.4); Specific Grav Ur <= 1.005 (1.010-1.020); Urobilinogen Urine 0.2 mg/dL (0.2-1.0); White Blood Count 8.2 K/mm3 (4.8-10.8)
[2023-09-21 17:21] LABS: Add Urine Microscopic? YES; RBC Urine None seen /hpf (0-2)
[2023-09-21 17:22] LABS: Bacteria Urine None seen /hpf; Squamous Epithelial Cell Urine Rare /hpf (Few); WBC Urine None seen /hpf (0-3)
[2023-09-21 17:34] LABS: Lactic Acid Reflex 0.9 mmol/L (0.4-2.0)
[2023-09-21 17:35] LABS: D Dimer 0.39 mg/L (0.19-0.50); INR 0.9; Partial Thromboplastin Time 27.1 SEC (23.90-30.70); Prothrombin Time 10.3 Seconds (9.50-12.10)
[2023-09-21 17:37] LABS: Alanine Aminotransferase 25 U/L (14-59); Albumin Level 3.2 g/dL (3.4-5.0); Alkaline Phosphatase 145 U/L (46-116); Anion Gap 7 mmol/L (8-16); Aspartate Amino Transferase 24 U/L (15-37); Bilirubin,Total 0.6 mg/dL (0.00-1.00); Blood Urea Nitrogen 19 mg/dL (7-18); CRP < 0.5 mg/dL (0.0-0.9); Calcium 9.1 mg/dL (8.5-10.1); Carbon Dioxide 32 mmol/L (21-32); Chloride 103 mmol/L (98-108); Estimated CRCL calculation 56 ml/min; Estimated Glomerular Filt Rate 54; Glucose 117 mg/dL (70-99); Lipase 38 U/L (16-77); NT Pro B Type Natriuretic Pept 161 pg/mL (0-125); Osmolality Calculated 297 mOsm/kg (285-295); Potassium 3.5 mmol/L (3.5-5.1); Sodium 142 mmol/L (136-145); Thyroid Stimulating Hormone 3.43 uIU/mL (0.36-3.74); Total Protein 7.1 g/dL (6.4-8.2); Troponin I 11.8 ng/L (0.00-60.4)
--- NOTE | 2023-09-21 17:57 | ED.GENADULT ---
HPI - General Adult General Chief complaint: Unspecified Stated complaint: CONVULSIONS Source: patient and family Mode of arrival: ambulatory Limitations: no limitations History of Present Illness HPI narrative: This is a 67-year-old female that presents after she had a witnessed episode of what was described as moment of absent type seizure lasting just a couple of minutes with some some dizziness and ringing undercover ears with no headache no blurry vision no neurological deficits little nausea with no vomiting no chest pain or shortness of breath. Patient has a history of hyperthyroidism and GERD otherwise no fever chills no sinus congestion or shortness of breath. Onset (ago): hour(s) Location: head Radiation: non-radiation Severity: mild Related Data Home Medications Medication Instructions Recorded Confirmed pantoprazole 40 mg tablet,delayed 40 mg PO BID 09/21/23 09/21/23 release Allergies Allergy/AdvReac Type Severity Reaction Status Date / Time shellfish derived Allergy Severe Swelling Verified 09/21/23 16:18 of Lip/Tongue/Throat, RASH iodine Allergy Unknown Swelling Verified 09/21/23 16:18 of Lip/Tongue/Throat hydroxyzine AdvReac Severe Hallucinati Verified 09/21/23 16:18 ng Shrimp Allergy Severe THROAT Uncoded 08/17/23 14:35 SWELLING,RASH Review of Systems Review of Systems: All systems reviewed & are unremarkable except as noted in HPI and below PMFSH Past Medical History Medical History Bradycardia Depression Dislocation of left shoulder joint Fibromyalgia GERD (gastroesophageal reflux disease) Hemorrhoids, internal History of rectal or anal cancer 08/26 Squamous cell Hypertension Hyperthyroidism Malignant neoplasm of anal canal Morbid obesity with BMI of 40.0-44.9, adult Non-STEMI (non-ST elevated myocardial infarction) Takotsubo cardiomyopathy Surgical History Surgical History History of appendectomy History of tonsillectomy History of tubal ligation Family History Family History Mother Family history of malignant neoplasm leukemia Father Family history of malignant neoplasm lung cancer Other Cerebrovascular accident Diabetes mellitus Hypertension Social History Social History Smoking status: Never smoker Second hand tobacco smoke exposure: No Alcohol intake: never Alcohol use details: socially Substance use: never Substance use type: does not use Living arrangements: alone Occupation/Education: occupation 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 Gender identity (if verbalized by the patient): Female Sexual Orientation (if Verbalized by the Patient): Straight or Heterosexual Spiritual care concerns: No Agree to blood products: Yes Exam Const: General: cooperative, healthy appearing, comfortable and no acute distress HENMT: Head: normal to inspection Ears: hearing grossly normal bilaterally Face/Nose/Sinus: Normal external nose present Face and sinus: normal facial exam and sinuses nontender Mouth: Yes Normal oral and palatal mucosa present Eyes: General: appearance normal, both eyes and all related structures Neck: Neck: normal visual inspection, full ROM and no lymphadenopathy Chest: Chest palpation & inspection: normal inspection of the chest and normal palpation of entire chest wall Resp: Effort & Inspection: normal respiratory effort and able to speak in complete sentences Auscultation: clear to auscultation bilaterally Cardio: Jugular venous distension: no JVD Palpation: normal PMI Rate: regular rate Rhythm: regular rhythm Back/Spine/Pelvis: Back: no CVA tenderness Neuro: General: oriented to person, oriented to place, oriented to time,
== END 2023-09-21 18:37 | disposition home or self-care (01) ==
PROVIDERS: Emergency Provider Emergency Medicine; PCP Family Medicine Adolescent Medicine
DX: R42 Dizziness and giddiness (principal); I10 Essential (primary) hypertension; I25.2 Old myocardial infarction; Z79.899 Other long term (current) drug therapy
CPT/HCPCS: 36415; 70450; 80053; 81001; 83605; 83690; 83880; 84443; 84484; 85025; 85380; 85610; 85730; 86140; 93005; 96360; 99284; J7030

== ENCOUNTER 2024-02-21 15:11 | Emergency (ER) | payer MEDICARE, OTHER, SELFPAY ==
[2024-02-21] VITALS (20 sets, daily range): BP systolic 150–189; BP diastolic 78–85; PULSE 56–64; RESP 13–20; TEMP 36.6; O2SAT 85–100
--- NOTE | ~2024-02-21 | XR_ITS ---
EXAMINATION: XR chest 1V portable DATE: 02/21/2024 16:20 INDICATION: Chest pain. TECHNIQUE: A single frontal view of the chest was obtained. COMPARISON: Chest single view 12/12/2022 FINDINGS: There is no pneumonia, pleural effusion, or pneumothorax. The heart size is normal. IMPRESSION: 1. No acute cardiopulmonary disease. Reviewed, dictated and finalized at location A.
--- NOTE | 2024-02-21 15:26 | ECG_ITS ---
Measurements Intervals [place] Rate: 59 P: 73 CA: 179 QRS: -31 QRSD: 94 T: -15 QT: 414 Avg RR 1011 QTc: 413 QTcB 411 QTcF 412 Interpretive Statements SINUS BRADYCARDIA LEFT AXIS DEVIATION [QRS AXIS < -30] PATTERN CONSISTENT WIHT PULMONARY DISEASE VOLTAGE CRITERIA FOR LVH [MEETS CRITERIA IN ONE OF: R(aVL), S(V1), R(V5), R(V5/V6)+S(V1)] ABNORMAL ECG SEE SCANNED COPY FOR SIGNATURE MTDD
--- NOTE | 2024-02-21 15:44 | ED.CHESTPAIN ---
HPI - Chest Pain General Chief Complaint: Chest Pain Stated Complaint: CHEST PAIN Time Seen by Provider: 02/21/24 15:43 Source: patient Mode of arrival: ambulatory Limitations: no limitations History of Present Illness HPI narrative: 68-year-old female depression, fibromyalgia, anal cancer, internal hemorrhoids, hypertension, GERD, hyperthyroidism with proptosis of the right eye, the [employer] in January of 2020 20-20 with a cardiac catheterization which revealed luminal irregularities, LVH with normal EF, RV enlargement presents to the ER with a 1 day history of -- unprovoked left-sided chest pain. No radiation of the pain. Pain is present over the left breast. Yesterday the pain lasted for 4 hours. Currently the patient has minimal pain. No nausea/vomiting. No shortness of breath. MD complaint: chest pain Pertinent past history: coronary artery disease ( Takotsubo) Onset (ago): day(s) ( 1 day) Timing of current episode: episodic Prior episodes: Yes Onset: during rest Pain location: left chest Pain radiation: none Severity: moderate Quality: aching Relieving factors: nothing Exacerbating factors: nothing Treatment prior to arrival: none Risk Factors Coronary artery disease risk factors: hyperlipidemia and hypertension Thoracic aortic dissection risk factors: longstanding hypertension Related Data On Oral Contraceptives: No Allergies Allergy/AdvReac Type Severity Reaction Status Date / Time shellfish derived Allergy Severe Swelling Verified 02/21/24 15:27 of Lip/Tongue/Throat, RASH iodine Allergy Unknown Swelling Verified 02/21/24 15:27 of Lip/Tongue/Throat hydroxyzine AdvReac Severe Hallucinati Verified 02/21/24 15:27 ng Shrimp Allergy Severe THROAT Uncoded 02/21/24 15:27 SWELLING,RASH Review of Systems Review of Systems: All systems reviewed & are unremarkable except as noted in HPI and below Constitutional: Constitutional: Reports as per HPI and Reports no additional constitutional complaints Eyes: Eyes: Reports as per HPI and Reports no additional eye complaints ENT: Reports system reviewed and no additional complaints, except as documented and Reports as per HPI Cardiovascular: Cardiovascular: Reports as per HPI and Reports no additional cardiovascular complaints Respiratory: Respiratory: Reports as per HPI and Reports no additional respiratory complaints Gastrointestinal: Gastrointestinal: Reports as per HPI and Reports no additional gastrointestinal complaints Comments: appetite is normal. Regular bowel movements Genitourinary: Genitourinary: Reports no additional female genitourinary complaints and Reports as per HPI Musculoskeletal: Musculoskeletal: Reports no additional musculoskeletal complaints and Reports as per HPI Integumentary/Breasts: Skin/Breast: Reports system reviewed and no additional complaints, except as docu and Reports as per HPI Neurologic: Reports system reviewed and no additional complaints, except as documented and Reports as per HPI Psychiatric: Psychiatric: Reports no additional psychiatric complaints and Reports as per HPI Endocrine: Endocrine: Reports no additional endocrine complaints and Reports as per HPI Hematologic/Lymphatic: Hematologic/Lymphatic: Reports no additional hematologic/lymphatic complaints and Reports as per HPI Allergic/Immunologic: Allergic/Immunologic: Reports no additional allergic/immunologic complaints and Reports as per HPI PMFSH Past Medical History Medical History Bradycardia Depression Dislocation of left shoulder joint Fibromyalgia GERD (gastroesophageal reflux disease) Hemorrhoids, internal History of rectal or anal cancer 08/26 Squamous cell Hypertension Hyperthyroidism Malignant neoplasm of anal canal Morbid obesity with BMI of 40.0-44.9, adult Non-STEMI (non-ST elevated myocardial infarction) Takotsubo cardiomyopathy Surgical Hi
[2024-02-21 16:23] LABS: Basophils Absolute Auto 0.06 K/mm3 (0.00-0.10); Basophils Percent Auto 0.9 % (0.0-1.0); Eosinophils Absolute Auto 0.11 K/mm3 (0.02-0.50); Eosinophils Percent Auto 1.7 % (1.0-6.0); Hematocrit 48.1 % (35.0-42.0); Hemoglobin 15.4 g/dL (11.7-13.8); Immature Granulocyte Absolute 0.02 K/mm3 (0.00-0.00); Immature Granulocyte Percent A 0.3 % (0.0-0.0); Immature Platelet Fraction Pct 3.5 % (1.0-7.0); Lymphocytes Absolute Auto 2.07 K/mm3 (1.10-4.50); Lymphocytes Percent Auto 32.2 % (18.0-42.0); Mean Corpuscular Hemoglobin 30.5 pg (27.0-31.0); Mean Corpuscular Volume 95.2 fL (78.0-102.0); Mean Platelet Volume 10.9 fl (9.2-11.8); Monocytes Absolute Auto 0.48 K/mm3 (0.10-0.90); Monocytes Percent Auto 7.5 % (2.0-11.0); Neutrophils Absolute Auto 3.68 K/mm3 (1.70-7.20); Neutrophils Percent Auto 57.4 % (50.0-70.0); Platelet Count Result 163 K/mm3 (150-420); Red Blood Count 5.05 M/mm3 (4.20-5.40); Red Cell Distribution Width 12.8 % (11.6-14.4); White Blood Count 6.4 K/mm3 (4.8-10.8)
--- NOTE | 2024-02-21 16:32 | PC.NURSE ---
Pt not wanting to keep BP cuff on. Pt reports it is painful when taking her BP
[2024-02-21 16:41] LABS: Lactic Acid Reflex 1.6 mmol/L (0.4-2.0)
[2024-02-21 16:48] LABS: Alanine Aminotransferase 29 U/L (14-59); Albumin Level 3.4 g/dL (3.4-5.0); Alkaline Phosphatase 115 U/L (46-116); Anion Gap 5 mmol/L (4-12); Aspartate Amino Transferase 111 U/L (15-37); Bilirubin,Total 0.3 mg/dL (0.00-1.00); Blood Urea Nitrogen 16 mg/dL (7-18); Calcium 8.7 mg/dL (8.5-10.1); Carbon Dioxide 30 mmol/L (21-32); Chloride 102 mmol/L (98-108); Creatine Kinase 404 U/L (26-192); Estimated CRCL calculation 68 ml/min; Estimated Glomerular Filt Rate > 60; Glucose 87 mg/dL (70-99); Magnesium 2.1 mg/dL (1.8-2.4); NT Pro B Type Natriuretic Pept 124 pg/mL (0-125); Osmolality Calculated 284 mOsm/kg (285-295); Sodium 137 mmol/L (136-145); Thyroid Stimulating Hormone 2.31 uIU/mL (0.36-3.74); Total Protein 8.4 g/dL (6.4-8.2); Troponin I 8.3 ng/L (0.00-60.4)
[2024-02-21 16:54] LABS: Potassium 4.8 mmol/L (3.5-5.1)
--- NOTE | 2024-02-21 18:29 | PC.NURSE ---
Error with lab regarding covid and UA, samples never obtained, ERP cancels
== END 2024-02-21 18:26 | disposition home or self-care (01) ==
PROVIDERS: Emergency Provider Internal Medicine Critical Care Medicine; PCP Family Medicine Adolescent Medicine
DX: R07.89 Other chest pain (principal); R00.1 Bradycardia, unspecified; E05.00 Thyrotoxicosis with diffuse goiter without thyrotoxic crisis or storm; I10 Essential (primary) hypertension; I51.81 Takotsubo syndrome; I25.10 Atherosclerotic heart disease of native coronary artery without angina pectoris; K21.9 Gastro-esophageal reflux disease without esophagitis; M79.7 Fibromyalgia; F32.A Depression, unspecified; E78.5 Hyperlipidemia, unspecified; I25.2 Old myocardial infarction; Z85.048 Personal history of other malignant neoplasm of rectum, rectosigmoid junction, and anus
CPT/HCPCS: 36415; 71045; 80053; 82550; 83605; 83735; 83880; 84443; 84484; 85025; 85055; 87637; 93005; 99284

== ENCOUNTER 2024-09-11 13:53 | Emergency (ER) | payer MEDICARE, OTHER, SELFPAY ==
--- NOTE | ~2024-09-11 | CT_ITS ---
EXAMINATION: CT brain wo con DATE: 09/11/2024 15:04 INDICATION: Generalized headache. Episodes of shaking and tremors. TECHNIQUE: Computed tomography (CT) of the head was performed without intravenous contrast. Sagittal and coronal reconstructions were performed. The mA was adjusted according to patient size. Iterative reconstruction technique was employed. The dose-length product was 605.33 mGy-cm. COMPARISON: head CT dated 09/21/2023 FINDINGS: No acute intracranial hemorrhage, acute infarction or abnormal extra axial fluid collection. There is mild scattered white matter hypoattenuation consistent with chronic small vessel ischemic disease. Ventricles are normal and symmetric. No mass/mass effect. Changes of bilateral intraocular lens repla cement. Chronic small left mastoid effusion. Mild mucosal thickening in the left maxillary sinus. IMPRESSION: 1. Stable mild scattered white matter T2 hyperintensity consistent with chronic small vessel ischemic disease. No acute intracranial process. Reviewed, dictated and finalized at location A.
[2024-09-11 13:55] VITALS: BP 165/81; PULSE 65; RESP 18; TEMP 36.4; O2SAT 99
--- NOTE | 2024-09-11 14:23 | ED.HA ---
HPI - Headache General Chief Complaint: Headache Stated Complaint: pain in front of head Time Seen by Provider: 09/11/24 14:23 Source: patient Mode of arrival: ambulatory Limitations: no limitations History of Present Illness HPI Narrative: 68-year-old female with a history of fibromyalgia, rectal/anal cancer, internal hemorrhoids, hypertension, GERD, hypethyroidism/ Graves disease, takotsubo cardiomyopathy diagnosed on 02/01/2022 presents to the ED with a 3 month History of -- headache which is generalized. She feels a burst like sensation in the head. No fever. No focal neuro deficit. No vomiting. Patient has nausea without any vomiting. No photophobia. She -- generalized shaking. The patient is awake during this shaking episodes. No tongue bite or urinary incontinence during these episodes. patient had normal thyroid studies 3 weeks ago. MD elicited complaint: headache Onset (ago): month(s) ( 3 months) Onset description: gradually Location: generalized Severity: moderate Quality & Timing: aching Exacerbating factors: none Relieving factors: nothing Context: occurred at rest Associated symptoms: none Treatments prior to arrival: none Related Data Home Medications Medication Instructions Recorded Confirmed Asura PO 09/10/24 09/10/24 EyePlex PO 09/10/24 09/10/24 Fruits and Veggies PO 09/10/24 09/10/24 loperamide 2 mg capsule 2 mg PO ONCE 09/10/24 09/10/24 selenium 200 mcg capsule 200 mcg PO DAILY 09/10/24 09/10/24 Allergies Allergy/AdvReac Type Severity Reaction Status Date / Time shellfish derived Allergy Severe Swelling Verified 09/10/24 14:57 of Lip/Tongue/Throat, RASH iodine Allergy Unknown Swelling Verified 09/10/24 14:57 of Lip/Tongue/Throat hydroxyzine AdvReac Severe Hallucinati Verified 09/10/24 14:57 ng Shrimp Allergy Severe THROAT Uncoded 09/10/24 14:57 SWELLING,RASH Review of Systems Review of Systems: All systems reviewed & are unremarkable except as noted in HPI and below Constitutional: Constitutional: Reports as per HPI and Reports no additional constitutional complaints Eyes: Eyes: Reports as per HPI and Reports no additional eye complaints Comments: she complains of diplopia which is chronic. The patient is seeing an freight rate specialist for her proptosis ENT: Reports system reviewed and no additional complaints, except as documented and Reports as per HPI Cardiovascular: Cardiovascular: Reports as per HPI and Reports no additional cardiovascular complaints Respiratory: Respiratory: Reports as per HPI and Reports no additional respiratory complaints Gastrointestinal: Gastrointestinal: Reports as per HPI and Reports no additional gastrointestinal complaints Genitourinary: Genitourinary: Reports no additional female genitourinary complaints and Reports as per HPI Musculoskeletal: Musculoskeletal: Reports no additional musculoskeletal complaints and Reports as per HPI Integumentary/Breasts: Skin/Breast: Reports system reviewed and no additional complaints, except as docu and Reports as per HPI Neurologic: Reports system reviewed and no additional complaints, except as documented, Reports as per HPI and Reports headache(s) Psychiatric: Psychiatric: Reports no additional psychiatric complaints and Reports as per HPI Endocrine: Endocrine: Reports no additional endocrine complaints and Reports as per HPI Hematologic/Lymphatic: Hematologic/Lymphatic: Reports no additional hematologic/lymphatic complaints and Reports as per HPI Allergic/Immunologic: Allergic/Immunologic: Reports no additional allergic/immunologic complaints and Reports as per HPI PMFSH Past Medical History Medical History Bradycardia Depression Dislocation of left shoulder joint Fibromyalgia GERD (gastroesophageal reflux disease) Hemorrhoids, internal History of rectal or anal cancer 08/26 Squamous cell Hypertension Hyperthyroidism Malignant neoplasm of anal canal Morbid obesity with BMI of 40.0-44.9, adult Non-STEMI (non-ST elevated myocardial infarction) Takotsubo cardiomyopathy Surgical History Surgical History History of appendectomy History of tonsillectomy History of tubal ligation Family History Family History Mother Family history of malignant neoplasm leukemia Father Family history of malignant neoplasm lung cancer Other Cerebrovascular accident Diabetes mellitus Hypertension Social History Social History Smoking status: Never smoker Second hand tobacco smoke exposure: No Alcohol intake: never Alcohol use details: socially Substance use: never Substance use type: does not use Living arrangements: alone Occupation/Education: 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 Afebrile. Oxygen saturation of 99% on room air. Const: General: no acute distress Orientation/consciousness: patient oriented x3 Limitations: no limitations HENMT: Head: normal to inspection Ears: external ears normal, TM's normal bilaterally and EAC's normal Face/Nose/Sinus: Normal external nose present Face and sinus: normal facial exam Mouth: Yes Normal oral and palatal mucosa present Throat: posterior oropharynx normal Eyes: Conjunctivae: conjunctivae normal Pupils: Equal, round and reactive pupils present EOM: EOMs intact bilaterally Direct Ophthalmoscopy: no photophobia Other: Proptosis right eye is worse than the left Neck: Neck: normal visual inspection, no lymphadenopathy and no meningeal signs Other: no thyromegaly appreciated. No thyroid bruit. Chest: Chest palpation & inspection: normal inspection of the chest Resp: Effort & Inspection: normal respiratory effort Auscultation: clear to auscultation bilaterally Cardio: Rate: regular rate Rhythm: regular rhythm GI: GI Palp: Yes Soft to palpation Other: No tenderness/ rigidity /rebound. : General: Yes no CVA tenderness Back/Spine/Pelvis: Back: no CVA tenderness Cervical Spine: collar present Skin: General skin exam: normal color Rashes: no rashes Wounds: no wounds Neuro: General: patient oriented x3, moves all extremities, no meningeal signs, no focal motor deficits and CN's II-XI intact bilaterally Cranial nerves: Yes Nystagmus not present Speech: normal speech Extrem: General: normal to inspection, no clubbing, cyanosis or edema and edema Other: No pretibial myxedema noted Psych: Mental Status: mental status grossly normal Affect: normal affect Attitude: cooperative Course Course Emergency Course: headache-- CT of the head did not show any acute findings. Patient has a history of chronic headaches. She had a normal ESR. Patient does not have any criteria suggestive of migraine. shaking spells possibly related to hyperthyroidism/anxiety Hyperthyroidism/ Graves disease-- she had normal blood counts. She had normal thyroid function test 3 weeks ago. Vital Signs Vital signs: Vital Signs Temperature 36.4 C 09/11/24 13:55 Pulse Rate 65 09/11/24 13:55 Respiratory Rate 18 09/11/24 13:55 Blood Pressure 165/81 H 09/11/24 13:55 Pulse Oximetry 99 10/30/24 13:55 Oxygen Delivery Room Air 09/11/24 13:55 Temperature 36.4 C 09/11/24 13:55 Pulse Rate 65 09/11/24 13:55 Respiratory Rate 18 09/11/24 13:55 Blood Pressure 165/81 H 09/11/24 13:55 Pulse Oximetry 99 09/11/24 13:55 Oxygen Delivery Room Air 09/11/24 13:55 MDM - Headache MDM Narrative Medical decision making narrative: chronic headache generalized shaking/anxiety dehydration--. Lasix Differential Diagnosis Differential diagnosis: Likely subarachnoid hemorrhage, meningitis and sinusitis Medical Records Attestation: I reviewed the patient's medical records. Lab Data Attestation: I reviewed the patient's lab results. 09/11/24 14:55 09/11/24 14:55 Labs: Lab Results 09/11/24 Range/Units 14:55 WBC 7.9 (4.8-10.8) K/mm3 RBC 4.22 (4.20-5.40) M/mm3 Hgb 13.2 (11.7-13.8) g/dL Hct 40.2 (35.0-42.0) % MCV 95.3 (78.0-102.0) fL MCH 31.3 H (27.0-31.0) pg MCHC 32.8 (32-36) g/dL RDW 12.6 (11.6-14.4) % Plt Count 235 (150-420) K/mm3 MPV 10.2 (9.2-11.8) fl Immature Gran % (Auto) 0.4 H (0.0-0.0) % Neut % (Auto) 57.0 (50.0-70.0) % Lymph % (Auto) 32.5 (18.0-42.0) % Vernon % (Auto) 6.6 (2.0-11.0) % Eos % (Auto) 2.2 (1.0-6.0) % Baso % (Auto) 1.3 H (0.0-1.0) % Lymph # (Auto) 2.56 (1.10-4.50) K/mm3 Vernon # (Auto) 0.52 (0.10-0.90) K/mm3 Eos # (Auto) 0.17 (0.02-0.50) K/mm3 Baso # (Auto) 0.10 (0.00-0.10) K/mm3 Abs Immat Gran (auto) 0.03 H (0.00-0.00) K/mm3 Absolute Neuts (auto) 4.50 (1.70-7.20) K/mm3 Absolute Nucleated RBC 0.00 (0.00-0.00) K/mm3 Nucleated RBC % 0.0 (0-0.0) % ESR 18 (0-20) mm/hr Sodium 143 (136-145) mmol/L Potassium 3.9 (3.5-5.1) mmol/L Chloride 106 (98-108) mmol/L Carbon Dioxide 27 (21-32) mmol/L Anion Gap 10 (4-12) mmol/L BUN 15 (7-18) mg/dL Creatinine 1.16 H (0.55-1.02) mg/dL Estim Creat Clear Calc 48 ml/min Estimated GFR 47 L (59 - ) Glucose 100 H (70-99) mg/dL Calculated Osmolality 296 H (285-295) mOsm/kg Lactic Acid 0.7 (0.4-2.0) mmol/L Calcium 8.8 (8.5-10.1) mg/dL Total Bilirubin 0.4 (0.00-1.00) mg/dL AST 22 (15-37) U/L ALT 16 (14-59) U/L Alkaline Phosphatase 100 (46-116) U/L Total Protein 6.9 (6.4-8.2) g/dL Albumin 3.0 L (3.4-5.0) g/dL Discharge Plan Discharge Clinical Impression: Persistent headaches, Dehydration Patient Disposition: Home, Self-Care Condition: Stable Instructions: Antibiotic Form, General Headache (ED) Additional Instructions: stop Lasix Patient Language: Namibian Prescriptions: No Action loperamide 2 mg capsule 2 mg PO ONCE selenium 200 mcg capsule 200 mcg PO DAILY Asura 2 oz drops PO EyePlex capsule PO Fruits and Veggies capsule PO methimazole 5 mg tablet See Rx Instructions PO DAILY Qty: 30 1RF Rx Instructions: 20mg daily x 4 weeks then 15mg daily orally daily; propranolol 120 mg capsule,extended release 24hr 120 mg PO DAILY Qty: 90 2RF furosemide 20 mg tablet See Rx Instructions .ROUTE .COMPLEX Qty: 180 2RF Dose Instruction: TAKE 2 TABLETS BY MOUTH EVERY DAY IN THE MORNING Rx Instructions: TAKE 2 TABLETS BY MOUTH EVERY DAY IN THE MORNING Follow-up/Referrals: Rosendo Prado MD [Primary Care Provider] - Time of Disposition: 16:15
[2024-09-11 15:01] LABS: Basophils Percent Auto 1.3 % (0.0-1.0); Eosinophils Absolute Auto 0.17 K/mm3 (0.02-0.50); Eosinophils Percent Auto 2.2 % (1.0-6.0); Hematocrit 40.2 % (35.0-42.0); Hemoglobin 13.2 g/dL (11.7-13.8); Immature Granulocyte Absolute 0.03 K/mm3 (0.00-0.00); Immature Granulocyte Percent A 0.4 % (0.0-0.0); Lymphocytes Absolute Auto 2.56 K/mm3 (1.10-4.50); Lymphocytes Percent Auto 32.5 % (18.0-42.0); Mean Corpuscular HGB Conc 32.8 g/dL (32-36); Mean Corpuscular Hemoglobin 31.3 pg (27.0-31.0); Mean Corpuscular Volume 95.3 fL (78.0-102.0); Mean Platelet Volume 10.2 fl (9.2-11.8); Monocytes Absolute Auto 0.52 K/mm3 (0.10-0.90); Monocytes Percent Auto 6.6 % (2.0-11.0); Platelet Count Result 235 K/mm3 (150-420); Red Blood Count 4.22 M/mm3 (4.20-5.40); Red Cell Distribution Width 12.6 % (11.6-14.4); White Blood Count 7.9 K/mm3 (4.8-10.8)
[2024-09-11 15:16] LABS: Alanine Aminotransferase 16 U/L (14-59); Alkaline Phosphatase 100 U/L (46-116); Anion Gap 10 mmol/L (4-12); Aspartate Amino Transferase 22 U/L (15-37); Bilirubin,Total 0.4 mg/dL (0.00-1.00); Blood Urea Nitrogen 15 mg/dL (7-18); Calcium 8.8 mg/dL (8.5-10.1); Carbon Dioxide 27 mmol/L (21-32); Chloride 106 mmol/L (98-108); Estimated CRCL calculation 48 ml/min; Estimated Glomerular Filt Rate 47; Glucose 100 mg/dL (70-99); Osmolality Calculated 296 mOsm/kg (285-295); Potassium 3.9 mmol/L (3.5-5.1); Sodium 143 mmol/L (136-145); Total Protein 6.9 g/dL (6.4-8.2)
[2024-09-11 15:19] LABS: Lactic Acid Reflex 0.7 mmol/L (0.4-2.0)
[2024-09-11 16:01] LABS: Erythrocyte Sedimentation Rate 18 mm/hr (0-20)
--- NOTE | 2024-09-11 16:15 | PC.NURSE ---
[address] with xray staff 1515 returned to room. 1530 pt visiting with daughter in room, call richards in reach 1600 no needs at this time. pt resting in bed. awaiting ct and lab results 1615 dr jiménez in with pt , discussed discharge plan.
[2024-09-11 16:22] VITALS: BP 163/80; PULSE 54; RESP 20; TEMP 36.6; O2SAT 97
[2024-09-11] MEDS: HYDROmorphone HCL INJ (*CRX) 2 MG/ML VIAL 0.5 MG IM (16:30)
[2024-09-11] MEDS: ONDANSETRON HCL ODT 4 MG TABLET PO (16:31)
== END 2024-09-11 16:45 | disposition home or self-care (01) ==
PROVIDERS: Emergency Provider Internal Medicine Critical Care Medicine; PCP Family Medicine Adolescent Medicine
DX: R51.9 Headache, unspecified (principal); E86.0 Dehydration; I10 Essential (primary) hypertension; I25.2 Old myocardial infarction; Z79.899 Other long term (current) drug therapy
CPT/HCPCS: 36415; 70450; 80053; 83605; 85025; 85652; 96372; 99284; A9270; J1171

== ENCOUNTER 2024-11-12 11:36 | Outpatient (CLI) | payer MEDICARE, OTHER, SELFPAY ==
--- NOTE | ~2024-11-12 | MM_ITS ---
EXAMINATION: MM screening glenny BI w rabia HISTORY: Screening mammogram TECHNIQUE: Craniocaudal and mediolateral oblique 3-D tomosynthesis images were obtained and synthetic 2-D images were generated. CAD analysis was submitted and interpreted. COMPARISON: 08/21/2014 BREAST PARENCHYMAL COMPOSITION:Not Dense. There are scattered areas of fibroglandular density. FINDINGS: No suspicious mass, calcification, or architectural distortion are identified in either gualberto ast to suggest malignancy. There has been no suspicious interval change. IMPRESSION: No mammographic evidence of malignancy. Recommend routine screening mammography in one year. BI-RADS Category 1: Negative Reviewed, dictated and finalized at location . STANT FOOD SERVICE DIRECTOR
== END 2024-11-12 11:37 | disposition home or self-care (01) ==
LOC: ANHIMG 11:38
PROVIDERS: PCP Family Medicine Adolescent Medicine; Visit Provider Obstetrics & Gynecology
DX: Z12.31 Encounter for screening mammogram for malignant neoplasm of breast (principal)
CPT/HCPCS: 77063; 77067

== ENCOUNTER 2024-12-19 16:09 | Emergency (ER) | payer MEDICARE, OTHER, SELFPAY ==
[2024-12-19] VITALS (8 sets, daily range): BP systolic 167–190; BP diastolic 69–109; PULSE 60–67; RESP 14–22; TEMP 36.6; O2SAT 92–94
--- OUTSIDE RECORDS SUMMARY | 2024-12-19 16:11 | XMS_ITS | Referral Summary ---
Author Organization [facility] [address] Address [address] [place] [address] Care Team Providers Care Strap Setter Name Role Phone Rosendo Prado MD Primary Care Prov ider Rosendo Prado MD Unavailable + Ivone Mederos NP Unavailable [phone] Encounters Date Type Department Care Team Description 10/22/2024 8:15 AM DENTAL HYGIENE PROFESSOR Office Visit [facility] Cardiology at [address] [place] [phone] Derrell Boateng MD Takotsubo cardiomyopathy (Primary Dx) 10/17/2024 Telephone [facility] Specialists of [address] [address] Kirsten Mercado from Last 3 Months Allergies Active Allergy Reactions Criticality Noted Date Comments Iodine Shortness of breath,Swelling,Rash High 01/07/2022 Shellfish Containing Products Rash Medium 12/26/2023 Shrimp Anaphylaxis,Hives High 01/07/2022 Medications nitroglycerin (NITROSTAT) 0.[address] 1 tablet (0.4 mg total) under the tongue every 5 (five) minutes as needed for chest pain May repeat dose q 5 min, up to 3 doses total 30 tablet 2 05/22/2024 Active propranolol LA (INDERAL LA) 80 mg 24 hr capsule Take 1 capsule (80 mg total) by mouth daily 09/25/2024 Active methIMAzole (TAPAZOLE) 5 mg tablet Take 1 tablet (5 mg total) by mouth daily Active Active Problems Problem Noted Date Diagnosed Date Angina pectoris, unspecified 05/22/2024 Graves' disease without crisis 12/26/2023 Assessment & Plan (12/26/2023 3:10 PM DENTAL HYGIENE PROFESSOR): Chronic, uncontrolled Update TFTs includign TSI and TSH r abs Will adjust dose of methimazole, accordingly F/u in 3 m Graves' disease with exophthalmos 12/26/2023 Assessment & Plan (05/29/2024 10:59 AM CDT): Referral to Dr Gavin for thyroid eye disease: Dr Trevor Gavin [address] [facility] [address] [place] [address] Aware to call his office if she's not heard anything by next week. Assessment & Plan (12/26/2023 3:11 PM DENTAL HYGIENE PROFESSOR): Improving Updaste TSI, TSH R abs. Continue monitoring. Hyperthyroidism 02/16/2023 Assessment & Plan (05/29/2024 10:49 AM CDT): Chronic problem; uncontrolled. Diagnosed 02/2023. Will update TFTs today. Aware that we may have her return to lab q8wks until her next appt pending lab results. Had been on methimazole 5mg daily since 01/10/24 (iatrogenic hypothyroidism 12/2023 on methimazole 10mg daily). Verified that she uses mychart. Aware to check results/results letter in [facility]. Will contact by phone if needed. Assessment & Plan (08/24/2023 11:47 AM CDT): Chronic problem; uncontrolled. Diagnosed 02/2023. Reviewed Graves disease. Will update TFTs today. Aware that we may have her return to lab q8wks until her next appt pending lab results. Had been on methimazole 20mg daily x1 month until today when she dropped to 15mg daily. Verified that she uses mychart. Aware to check results/results letter in [facility]. Will contact by phone if needed. Assessment & Plan (07/25/2023 11:02 AM CDT): Chronic, uncontrolled Restart methimazole 20 mg daily x 4 wks, then continue with 15 mg daily Follow up in 6 weeks. Assessment & Plan (02/16/2023 4:23 PM CDT): Differential also will include thyroiditis. Thyroid ultrasound today more suggestive of thyroiditis without clear evidence of hypervascular thyroid gland which usually the case in patient with hyperthyroidism I advised the patient on holding on the methimazole for now Let date TFTs including TSH, free T4, free T3, TPO antibodies and TSI Will request also thyroid uptake and scan gained for to help us to distinguish between actually hyperthyroidism versus hyperthyroid phase of a thyroiditis Morbid obesity 01/12/2023 Takotsubo cardiomyopathy 07/07/2022 Malignant neoplasm of anus (CMS/HCC) 09/02/2014 Social History Tobacco Use Types Packs/Day Years Used Date Smoking Tobacco: Never Smokeless Tobacco: Never Alcohol Use Standard Drinks/Week Comments Yes 0 (1 standard drink = 0.6 oz pur e alcohol) Comments Unknown Sex and Gender Information Value Date Recorded Sex Assigned at Not on file Legal Sex Female 4:41 AM DENTAL HYGIENE PROFESSOR Gender Identity Not on file Sexual Orientation Not on file Last Filed Vital Signs Vital Sign [place] Time Taken Comments Blood Pressure 126/80 10/22/2024 8:18 AM DENTAL HYGIENE PROFESSOR Pulse 65 10/22/2024 8:18 AM DENTAL HYGIENE PROFESSOR Temperature - - Respiratory Rate 18 05/29/2024 10:34 AM CDT Oxygen Saturation 98% 10/22/2024 8:18 AM DENTAL HYGIENE PROFESSOR Inhaled Oxygen Concentration - - Weight 103.9 kg (229 lb) 10/22/2024 8:18 AM DENTAL HYGIENE PROFESSOR Height 162.6 cm (5' 4 ) 10/22/2024 8:18 AM DENTAL HYGIENE PROFESSOR Body Mass Index 39.31 10/22/2024 8:18 AM DENTAL HYGIENE PROFESSOR Plan of Treatment Not on file Insurance MEDICARE [employer]ICARE [employer] MEDICARE [facility] Care Teams Strap Setter Relationship Specialty Start Date End Date Rosendo Prado MD [address] [place] [id number] PCP - General 02/24/20 Rosendo Prado MD [address] [place] [id number] 02/24/20 Ivone Mederos NP [address] [place] [address] [place] [address] Nurse Practitioner Family Practice 07/21/23
--- OUTSIDE RECORDS SUMMARY | 2024-12-19 16:11 | XMS_ITS | Clinical Summary ---
Author Organization [facility] [address] Address [address] [place] [address] Care Team Providers Care Bottom Stop Attacher Name Role Phone Rosendo Prado MD Primary Care Prov ider Rosendo Prado MD Unavailable + Ivone Mederos NP Unavailable [phone] Allergies Active Allergy Reactions Criticality Noted Date [...] 12/26/2023 Assessment & Plan (12/26/2023 3:10 PM INCUBATOR MACHINE OPERATOR): Chronic, uncontrolled Update TFTs includign TSI and TSH r abs Will adjust dose of methimazole, accordingly F/u in 3 m Graves' disease with exophthalmos 12/26/2023 Assessment & Plan (05/29/2024 10:59 AM CDT): Referral to Dr Gavin for thyroid eye disease: Dr Trevor Gavin [address] [facility] [address] [place] [address] Aware to call his office if she's not heard anything by next week. Assessment & Plan (12/26/2023 3:11 PM INCUBATOR MACHINE OPERATOR): Improving Updaste TSI, TSH R abs. Continue [...] mychart. Aware to check results/results letter in [facility]. Will contact by phone if needed. Assessment [...] mychart. Aware to check results/results letter in [facility]. Will contact by phone if needed. Assessment [...] 07/07/2022 Malignant neoplasm of anus (CMS/HCC) 09/02/2014 Encounters Date Type Department Care Team Description 10/22/2024 8:15 AM INCUBATOR MACHINE OPERATOR Office Visit [facility] Cardiology at [address] [place] [phone] Derrell Boateng MD Takotsubo cardiomyopathy (Primary Dx) 10/17/2024 Telephone [facility] Specialists of [address] [address] Kirsten Mercado from Last 3 Months Surgical History Surgery Date Site/Laterality Comments APPENDECTOMY Appendectomy BLADDER SUSPENSION bladder tie up CATARACT EXTRACTION W/ INTRAOCULAR LENS IMPLANT, BILATERAL 11/13/2018 - 11/12/2019 Bilateral Monovision IOL (OD Distance, OS Near) Medical History Medical History Date Comments Malignant neoplasm of rectum (CMS/HCC) (HCC) Cancer, rectal; Comments: DN M 12/19/2016 - Presbyopia Pseudophakia, both eyes Monovisi on IOL (OD Distance, OS Near) Family History Medical History Relation Name Comments Lung cancer Father Cancer -lung; No Known Problems Mother Cancer Other 1 Cancer, unknown ; Arthritis Other 2 Arthritis; Heart failure Other 3 Congestive hea rt failure; Coronary artery disease Other 4 Ashwin nary artery disease; Stroke Other 5 Stroke; Relation Name Status Comments Father Mother Other 1 Other 2 Other 3 Other 4 Other 5 Social History Tobacco Use Types Packs/Day Years Used Date Smoking Tobacco: Never Smokeless Tobacco: Never Alcohol Use Standard Drinks/Week Comments Yes 0 (1 standard drink = 0.6 oz pur e alcohol) Comments Unknown Sex and Gender Information Value Date Recorded Sex Assigned at Not on file Legal Sex Female 4:41 AM INCUBATOR MACHINE OPERATOR Gender Identity Not on file Sexual Orientation Not on file Obstetrics History Last Filed Vital Signs Vital Sign [place] Time Taken Comments Blood Pressure 126/80 10/22/2024 8:18 AM INCUBATOR MACHINE OPERATOR Pulse 65 10/22/2024 8:18 AM INCUBATOR MACHINE OPERATOR Temperature - - Respiratory Rate 18 05/29/2024 10:34 AM CDT Oxygen Saturation 98% 10/22/2024 8:18 AM INCUBATOR MACHINE OPERATOR Inhaled Oxygen Concentration - - Weight 103.9 kg (229 lb) 10/22/2024 8:18 AM INCUBATOR MACHINE OPERATOR Height 162.6 cm (5' 4 ) 10/22/2024 8:18 AM INCUBATOR MACHINE OPERATOR Body Mass Index 39.31 10/22/2024 8:18 AM INCUBATOR MACHINE OPERATOR Plan of Treatment Health Maintenance Due Date Last Done Comments Colon Cancer Screening-Colonoscopy 1955 Depression Screening 1955 Hepatitis C Screening 1956 Osteoporosis Screening-Bone Density Scan 1956 Hepatitis B Screening 1974 Zoster Vaccine (1 of 2) 2006 Pneumococcal vaccine 65+ (1 of 1 - PCV) 2021 Well Visit 65+ 2021 Fall Risk Assessment 02/17/2024 02/16/2023 Breast Cancer Screening-Mammogram 05/25/2024 023, 05/19/2022 Influenza Vaccine (#1) 2024 11/13/2017 DTaP/Tdap/Td Vaccine (2 - Td or Tdap) 05/28/2028 Insurance MEDICARE [employer] [place] MEDICARE [employer] [place] MEDICARE [employer] [facility] Care Teams Bottom Stop Attacher Relationship Specialty Start Date End Date Rosendo Prado MD [address] [place] [address] PCP - General 02/24/20 Rosendo Prado MD [address] [place] [address] 02/24/20 Ivone Mederos NP [address] [place] [address] Nurse Practitioner Family Practice 07/21/23
--- OUTSIDE RECORDS SUMMARY | 2024-12-19 16:49 | XMS_ITS | Referral Summary ---
Author Organization [facility] [address] Address [address] [place] [address] Care Team Providers Care Ballistics Expert Forensic Name Role Phone Rosendo Prado MD Primary Care Prov ider Rosendo Prado MD Unavailable + Ivone Mederos NP Unavailable [phone] Encounters Date Type Department Care Team Description 10/22/2024 8:15 AM ECONOMICS DEPARTMENT CHAIR Office Visit [facility] Medical Group Cardiology at [address] [place] [phone] Derrell Boateng MD Takotsubo cardiomyopathy (Primary Dx) 10/17/2024 Telephone [facility] Specialists of [address] [address] Kirsten Mercado from Last 3 [...] 12/26/2023 Assessment & Plan (12/26/2023 3:10 PM ECONOMICS DEPARTMENT CHAIR): Chronic, uncontrolled Update TFTs includign TSI and TSH r abs Will adjust dose of methimazole, accordingly F/u in 3 m Graves' disease with exophthalmos 12/26/2023 Assessment & Plan (05/29/2024 10:59 AM CDT): Referral to Dr Gavin for thyroid eye disease: Dr Trevor Gavin [address] [facility] [address] [place] [address] Aware to call his office if she's not heard anything by next week. Assessment & Plan (12/26/2023 3:11 PM ECONOMICS DEPARTMENT CHAIR): Improving Updaste TSI, TSH R abs. Continue [...] mychart. Aware to check results/results letter in [employer]. Will contact by phone if needed. Assessment [...] mychart. Aware to check results/results letter in [employer]. Will contact by phone if needed. Assessment [...] on file Legal Sex Female 4:41 AM ECONOMICS DEPARTMENT CHAIR Gender Identity Not on file Sexual Orientation Not on file Last Filed Vital Signs Vital Sign Reading Time Taken Comments Blood Pressure 126/80 10/22/2024 8:18 AM ECONOMICS DEPARTMENT CHAIR Pulse 65 10/22/2024 8:18 AM ECONOMICS DEPARTMENT CHAIR Temperature - - Respiratory Rate 18 05/29/2024 10:34 AM CDT Oxygen Saturation 98% 10/22/2024 8:18 AM ECONOMICS DEPARTMENT CHAIR Inhaled Oxygen Concentration - - Weight 103.9 kg (229 lb) 10/22/2024 8:18 AM ECONOMICS DEPARTMENT CHAIR Height 162.6 cm (5' 4 ) 10/22/2024 8:18 AM ECONOMICS DEPARTMENT CHAIR Body Mass Index 39.31 10/22/2024 8:18 AM ECONOMICS DEPARTMENT CHAIR Plan of Treatment Not on file Insurance MEDICARE [employer] [place] [employer]ICARE [employer] [place] MEDICARE [facility] Care Teams Ballistics Expert Forensic Relationship Specialty Start Date End Date Rosendo Prado MD [address] [place] [id number] PCP - General 02/24/20 Rosendo Prado MD [address] [place] [address] 02/24/20 Ivone Mederos NP [address] [place] [address] [place] [address] Nurse Practitioner Family Practice 07/21/23
--- OUTSIDE RECORDS SUMMARY | 2024-12-19 16:49 | XMS_ITS | Clinical Summary ---
Author Organization [facility] [address] Address [address] [place] [address] Care Team Providers Care Metal Riveter Name Role Phone Rosendo Prado MD Primary Care Prov ider Rosendo Prado MD Unavailable + Ivone Mederos NP Unavailable [phone] Allergies Active Allergy Reactions Criticality Noted [...] 12/26/2023 Assessment & Plan (12/26/2023 3:10 PM OPERATIONS AND MAINTENANCE SPECIALIST): Chronic, uncontrolled Update TFTs includign TSI and TSH r abs Will adjust dose of methimazole, accordingly F/u in 3 m Graves' disease with exophthalmos 12/26/2023 Assessment & Plan (05/29/2024 10:59 AM CDT): Referral to Dr Gavin for thyroid eye disease: Dr Trevor Gavin [address] [facility] [place] [address] [place] [address] Aware to call his office if she's not heard anything by next week. Assessment & Plan (12/26/2023 3:11 PM OPERATIONS AND MAINTENANCE SPECIALIST): Improving Updaste TSI, TSH R abs. Continue [...] Department Care Team Description 10/22/2024 8:15 AM OPERATIONS AND MAINTENANCE SPECIALIST Office Visit [facility] Medical Group Cardiology at [address] [place] [phone] Derrell Boateng MD Takotsubo cardiomyopathy (Primary Dx) 10/17/2024 Telephone [facility] Specialists of [address], [place] [address] Kirsten Mercado from Last 3 [...] on file Legal Sex Female 4:41 AM OPERATIONS AND MAINTENANCE SPECIALIST Gender Identity Not on file Sexual Orientation Not on file Obstetrics History Last Filed Vital Signs Vital Sign Reading Time Taken Comments Blood Pressure 126/80 10/22/2024 8:18 AM OPERATIONS AND MAINTENANCE SPECIALIST Pulse 65 10/22/2024 8:18 AM OPERATIONS AND MAINTENANCE SPECIALIST Temperature - - Respiratory Rate 18 05/29/2024 10:34 AM CDT Oxygen Saturation 98% 10/22/2024 8:18 AM OPERATIONS AND MAINTENANCE SPECIALIST Inhaled Oxygen Concentration - - Weight 103.9 kg (229 lb) 10/22/2024 8:18 AM OPERATIONS AND MAINTENANCE SPECIALIST Height 162.6 cm (5' 4 ) 10/22/2024 8:18 AM OPERATIONS AND MAINTENANCE SPECIALIST Body Mass Index 39.31 10/22/2024 8:18 AM OPERATIONS AND MAINTENANCE SPECIALIST Plan of Treatment Health Maintenance Due Date [...] or Tdap) 05/28/2028 Insurance MEDICARE [employer] [place] [employer]ICARE [employer] [place] MEDICARE [employer] [facility] Care Teams Metal Riveter Relationship Specialty Start Date End Date Rosendo Prado MD [address] [place] [address] PCP - General 02/24/20 Rosendo Prado MD [address] [place] [address] 02/24/20 Ivone Mederos NP [address] [facility] [place] [address] Nurse Practitioner Family Practice 07/21/23
[2024-12-19] MEDS: amLODIPine BESYLATE 5 MG TABLET PO (16:57)
--- NOTE | 2024-12-19 17:06 | ED.GENADULT ---
HPI - General Adult General Chief complaint: Unspecified Stated complaint: high blood pressure Time Seen by Provider: 12/19/24 16:11 Source: patient and family Mode of arrival: ambulatory Limitations: no limitations History of Present Illness HPI narrative: this is a 61-year-old female with history of Graves disease was started on propranolol by her primary care physician but after review by physicians at the [facility] heart rate has been low and propranolol has been tapered and recently started on losartan with hydrochlorothiazide. Patient presents with elevated blood pressure is initially 190/109 with a heart rate of 67. Patient denies any chest pain or shortness of breath no abdominal pain no nausea vomiting no fever chills no headaches or blurry vision. Onset (ago): day(s) Related Data Home Medications ?Medication ?Instructions ?Recorded ?Confirmed ?Last Taken ?Type Fruits and Veggies PO 09/10/24 11/04/24 Unknown History nitroglycerin 0.3 mg sublingual 0.3 mg sublingual Q5M PRN 09/25/24 11/04/24 Unknown History tablet (Nitrostat) Allergies Allergy/AdvReac Type Severity Reaction Status Date / Time shellfish derived Allergy Severe Swelling Verified 12/19/24 16:26 of Lip/Tongue/Throat, RASH iodine Allergy Unknown Swelling Verified 12/19/24 16:26 of Lip/Tongue/Throat hydroxyzine AdvReac Severe Hallucinati Verified 12/19/24 16:26 ng Shrimp Allergy Severe THROAT Uncoded 12/19/24 16:26 SWELLING,RASH Review of Systems Review of Systems: All systems reviewed & are unremarkable except as noted in HPI and below PMFSH Past Medical History Medical History Thyroid eye disease Graves disease Malignant neoplasm of anal canal Hemorrhoids, internal Hyperthyroidism Dislocation of left shoulder joint Bradycardia Takotsubo cardiomyopathy GERD (gastroesophageal reflux disease) Morbid obesity with BMI of 40.0-44.9, adult Non-STEMI (non-ST elevated myocardial infarction) History of rectal or anal cancer 08/26 Squamous cell Depression Fibromyalgia Hypertension Surgical History Surgical History History of tubal ligation History of tonsillectomy History of appendectomy Family History Family History Mother Family history of malignant neoplasm leukemia Father Family history of malignant neoplasm lung cancer Other Cerebrovascular accident Diabetes mellitus Hypertension Social History Social History Smoking status: Never smoker Second hand tobacco smoke exposure: No Alcohol intake: never Alcohol use details: socially Substance use: never Substance use type: does not use Living arrangements: alone Occupation/Education: occupation Additional occupation/education comments: [employer] Gender identity (if verbalized by the patient): Female Sexual Orientation (if Verbalized by the Patient): Straight or Heterosexual Spiritual care concerns: No Agree to blood products: Yes Exam Const: General: cooperative, healthy appearing, comfortable, no acute distress, well developed, alert, awake and Physically active Eyes: General: appearance normal, both eyes and all related structures Neck: Neck: normal visual inspection Resp: Effort & Inspection: normal respiratory effort and able to speak in complete sentences Cardio: Jugular venous distension: no JVD Palpation: normal PMI Rate: regular rate Rhythm: regular rhythm Heart sounds: S1 normal heart sound present and S2 normal heart sound present GI: Inspection: normal to inspection Skin: General skin exam: normal color and no rashes or lesions noted Course Course Emergency Course: Patient blood pressure has slightly improved and a dose of 5mg P best was given, advised patient to follow with her Primary/[facility] for further evaluation and treatment. Vital Signs Vital signs: Vital Signs Temperature 36.6 C 12/19/24 16:10 Pulse Rate 67 12/19/24 16:10 Respiratory Rate 22 H 12/19/24 16:10 Blood Pressure 190/109 H 12/19/24 16:10 Pulse Oximetry 92 12/19/24 16:10 Oxygen Delivery Room Air 12/19/24 16:10 Temperature 36.6 C 12/19/24 16:10 Pulse Rate 62 12/19/24 16:54 Respiratory Rate 15 12/19/24 16:54 Blood Pressure 181/78 H 12/19/24 16:54 Pulse Oximetry 92 12/19/24 16:54 Oxygen Delivery Room Air 12/19/24 16:10 Medical Decision Making Vital Signs Vital Signs: Vital Signs Temperature 36.6 C 12/19/24 16:10 Pulse Rate 67 12/19/24 16:10 Respiratory Rate 22 H 12/19/24 16:10 Blood Pressure 190/109 H 12/19/24 16:10 Pulse Oximetry 92 12/19/24 16:10 Oxygen Delivery Room Air 12/19/24 16:10 Temperature 36.6 C 12/19/24 16:10 Pulse Rate 62 12/19/24 16:54 Respiratory Rate 15 12/19/24 16:54 Blood Pressure 181/78 H 12/19/24 16:54 Pulse Oximetry 92 12/19/24 16:54 Oxygen Delivery Room Air 12/19/24 16:10 Critical Care Time Critical Care Time Critical Care Time: No Discharge Plan Discharge Clinical Impression: Graves disease Hypertension Qualifiers: Hypertension type: unspecified Qualified Code(s): I10 - Essential (primary) hypertension Patient Disposition: Home, Self-Care Condition: Stable Instructions: Antibiotic Form, Hypertension (ED) Additional Instructions: advised to take medication as prescribed and follow with your primary for further evaluation treatment. Patient Language: Slovenian Prescriptions: New amlodipine [Norvasc] 5 mg tablet 5 mg PO DAILY Qty: 14 0RF No Action Fruits and Veggies capsule PO nitroglycerin [Nitrostat] 0.3 mg tablet, sublingual 0.3 mg sublingual Q5M PRN Rx Instructions: do not exceed 3 doses per episode eszopiclone 1 mg tablet 1 mg PO ONCE Qty: 1 0RF methimazole 5 mg tablet See Rx Instructions PO DAILY Qty: 30 1RF Rx Instructions: 20mg daily x 4 weeks then 15mg daily orally daily; propranolol 80 mg capsule,extended release 24 hr See Rx Instructions .ROUTE .COMPLEX Qty: 90 0RF Dose Instruction: TAKE 1 CAPSULE BY MOUTH EVERY DAY Rx Instructions: TAKE 1 CAPSULE BY MOUTH EVERY DAY Follow-up/Referrals: Rosendo Prado MD [Primary Care Provider] -
--- NOTE | 2024-12-19 17:50 | PC.NURSE ---
ERP aware of current vitals, states patient is ready for discharge
== END 2024-12-19 17:56 | disposition home or self-care (01) ==
PROVIDERS: Emergency Provider Emergency Medicine; PCP Family Medicine Adolescent Medicine
DX: E05.00 Thyrotoxicosis with diffuse goiter without thyrotoxic crisis or storm (principal); I10 Essential (primary) hypertension; I25.2 Old myocardial infarction
CPT/HCPCS: 99283; A9270